=== PATIENT | female | born 1935 | race Caucasian/White ===

== ENCOUNTER 2017-01-22 16:59 | Emergency (ER) | payer MEDICARE, OTHER ==
[~2017-01-22] VITALS: Ht 152.4 cm; Wt 67.1 kg
[~2017-01-22 16:59] MED LIST: ASPIRIN EC81 MG PO; CEPHALEXIN500 MG PO; KEFLEX250 MG PO; NORCO 5-325 TA1 EACH PO; OXYBUTYNIN CHLOR5 MG PO; PAXIL20 MG PO; PRILOSEC20 MG PO; TOPROL XL50 MG PO; ZANTAC150 MG PO; ZOFRAN ODT4 MG SL; ZOFRAN ODT8 MG SL
== END 2017-01-22 19:12 | disposition home or self-care (01) ==
LOC: ED 16:59
PROC: 0T9B70Z Drainage of Bladder with Drainage Device, Via Natural or Artificial Opening (ICD-10-PCS; principal; 2017-01-22)
DX: R11.0 Nausea (principal); R34 Anuria and oliguria; I10 Essential (primary) hypertension; Z87.440 Personal history of urinary (tract) infections; Z90.49 Acquired absence of other specified parts of digestive tract; Z90.710 Acquired absence of both cervix and uterus; Z88.0 Allergy status to penicillin; Z88.2 Allergy status to sulfonamides; Z88.5 Allergy status to narcotic agent; Z79.899 Other long term (current) drug therapy; Z79.82 Long term (current) use of aspirin
CPT/HCPCS: 51701; 81001; 96361; 96374; 96375; 99284; J2405; J2765; J7030

== ENCOUNTER 2017-04-12 17:47 | Emergency (ER) | payer MEDICARE, OTHER ==
[~2017-04-12] VITALS: Ht 152.4 cm; Wt 67.1 kg
[2017-04-12] MEDS ORDERED: LEVAQUIN500 MG PO (21:56)
[2017-04-12] MEDS ORDERED: FLAGYL500 MG PO (21:56)
== END 2017-04-12 22:47 | disposition home or self-care (01) ==
LOC: ED 17:47
DX: N39.0 Urinary tract infection, site not specified (principal); I10 Essential (primary) hypertension; Z90.49 Acquired absence of other specified parts of digestive tract; Z90.89 Acquired absence of other organs; Z90.710 Acquired absence of both cervix and uterus; Z98.890 Other specified postprocedural states; Z88.2 Allergy status to sulfonamides; Z88.0 Allergy status to penicillin; Z88.8 Allergy status to other drugs, medicaments and biological substances; Z79.82 Long term (current) use of aspirin; Z79.899 Other long term (current) drug therapy
CPT/HCPCS: 80053; 81001; 83690; 85025; 87077; 87088; 87186; 96374; 96375; 99283; J1170; J2405; J7030

== ENCOUNTER 2017-09-18 16:09 | Emergency (ER) | payer MEDICARE, OTHER ==
[~2017-09-18] VITALS: Ht 152.4 cm; Wt 61.2 kg
--- OUTSIDE RECORDS SUMMARY | ~2017-09-18 | XMS | Clinical Summary ---
Demographics + + + | Address | [address] | | | [place] [address] | + + + | Home Phone | | + + + | Preferred Language | Unknown | + + + | Marital Status | Single | + + + | Tenriism Affiliation | Unknown | + + + | Race | Unknown | + + + | Ethnic Group | Unknown | + + + Author + + + | Author | [facility] | | | and Maximus | + + + | Organization | [facility] | | | [...] Team Providers + +------+ + | Care Hardware Engineer Name | Role | Phone | + +------+ + | Mandy Yanez PA-C | PP | | + +------+ + Allergies + + + + + + | Active Allergy | Reactions | Severity | Noted | Comments | | | | | Date | | + + + + + + | Diphenhydramine | Anxiety | Low | 02/13/20 | | | | | | 15 | | + + + + + + | Hydromorphone | Nausea And Vomiting | | 04/13/20 | | | | | | 17 | | + + + + + + | Levofloxacin | Hives | Medium | 02/13/20 | | | | | | 15 | | + + + + + + | Metoclopramide | Nausea And Vomiting | Low | 02/13/20 | | | | | | 15 | | + + + + + + | Morphine | Nausea And Vomiting | Low | 02/13/20 | | | | | | 15 | | + + + + + + | Nitrofurantoin | Other (See Comments) | Low | 02/13/20 | Unknown reaction | | | | | 15 | | + + + + + + | Promethazine | Nausea And Vomiting | Low | 02/13/20 | | | | | | 15 | | + + + + + + | Pseudoephedrine | Anxiety | Low | 02/13/20 | | | | | | 15 | | + + + + + + | Sulfamethoxazole-Tri | Hives | Medium | 02/13/20 | | | methoprim | | | 15 | | + + + + + + Current Medications + + +---------+---------+------+------+-------+ | Prescription | Sig. | Disp. | Refills | Star | End | Statu | | | | | | t | Date | s | | | | | | Date | | | + + +---------+---------+------+------+-------+ | PARoxetine (PAXIL) | Take 20 mg by mouth | | | | | Activ | | 20 mg tablet | every morning. | | | | | e | + + +---------+---------+------+------+-------+ | metoprolol | Take 50 mg by mouth | | | | | Activ | | succinate | Daily. | | | | | e | | (TOPROL-XL) 50 mg 24 | | | | | | | | hr tablet | | | | | | | + + +---------+---------+------+------+-------+ | ondansetron | Take 4 mg by mouth | | | | | Activ | | (ZOFRAN ODT) 4 mg | every 8 hours as | | | | | e | | disintegrating | needed for Nausea. | | | | | | | tablet | | | | | | | + + +---------+---------+------+------+-------+ | oxybutynin | Take 1 tablet by | 90 | 2 | 11/1 | | Activ | | (DITROPAN) 5 mg | mouth 2 times daily. | tablet | | 1/20 | | e | | tablet | | | | 17 | | | + + +---------+---------+------+------+-------+ | traZODone | Take 0.5 tablets by | 60 | 2 | 11/1 | | Activ | | (DESYREL) 50 mg | mouth nightly. | tablet | | 1/20 | | e | | tablet | | | | 17 | | | + + +---------+---------+------+------+-------+ | OMEPRAZOLE PO | Take by mouth. | | | | | Activ | | | | | | | | e | + + +---------+---------+------+------+-------+ | oxybutynin | Take 5 mg by mouth 2 | | | | 03/2 | Disco | | (DITROPAN) 5 mg | times daily. | | | | 0/20 | ntinu | | tablet | | | | | 18 | ed | + + +---------+---------+------+------+-------+ | metoprolol | Take 1 tablet by | 30 | 2 | 11/1 | 03/2 | Disco | | succinate | mouth Daily. | tablet | | 2/20 | 0/20 | ntinu | | (TOPROL-XL) 50 mg 24 | | | | 17 | 18 | ed | | hr tablet | | | | | | | + + +---------+---------+------+------+-------+ | PARoxetine (PAXIL) | Take 1 tablet by | 30 | 2 | 11/ | 03/2 | Disco | | 20 mg tablet | mouth every morning. | tablet | | 2/20 | 0/20 | ntinu | | | | | | 17 | 18 | ed | + + +---------+---------+------+------+-------+ | docusate sodium | Take 100 mg by mouth | 30 | 2 | 11/1 | 03/2 | Disco | | (COLACE) 100 MG | Twice daily as | capsule | | 1/20 | 0/20 | ntinu | | capsule | needed. | | | 17 | 18 | ed | + + +---------+---------+------+------+-------+ | cephalexin | Take 1 capsule by | 15 | 0 | 03/2 | 03/2 | Expir | | (KEFLEX) 500 mg | mouth 3 times daily | capsule | | 0/20 | 5/20 | ed | | capsule | for 5 days. | | | 18 | 18 | | + + +---------+---------+------+------+-------+ Active Problems + + + | Problem | Noted Date | + + + | Acute cystitis without hematuria | 04/14/2017 | + + + | Leucocytosis | 04/14/2017 | + + + | CKD (chronic kidney disease), stage III | 04/14/2017 | + + + | Dehydration with hyponatremia | 04/14/2017 | + + + | Syncope and collapse | 03/30/2016 | + + + | Declining functional status | 08/27/2015 | + + + + + | Overview: Patient and daughter endorse patient is not very | | active; does not do own shopping. Short of breath easily, but no | | complaint of chest discomfort. | + + + + + | Chronic UTI | 08/26/2015 | + + + | Blood in stool | 05/20/2015 | + + + | Abdominal pain, generalized | 05/20/2015 | + + + | Nausea | 05/20/2015 | + + + | Constipation | 05/20/2015 | + + + | Vitamin D deficiency | | + + + | UTI (urinary tract infection) | | + + + | Sensorineural hearing loss | | + + + | Pericardial effusion | | + + + | Mixed hyperlipidemia | | + + + | Incontinence | | + + + | Acid reflux disease | | + + + | Asthma | | + + + | Atrophic vaginitis | | + + + | Benign essential hypertension | | + + + | Chronic cough | | + + + | Chronic neck pain | | + + + | Depressive disorder | | + + + | Fatigue | | + + + | GERD (gastroesophageal reflux disease) | | + + + | Hearing loss | | + + + | Hyperlipidemia | | + + + | Arthritis | | + + + Encounters +--------+ + + + + | Date | Type | Specialty | Care Team | Description | +--------+ + + + + | 08/31/ | Emergency | | Forest Olson, | Urinary tract | | 2017 | | | MD | infection without | | | | | | hematuria, site | | | | | | unspecified (Primary | | | | | | Dx) | +--------+ + + + + | 06/22/ | Ancillary | | Provider, | | | 2017 | Orders | | MD Ry | | +--------+ + + + + from Last 3 Months Family History + + +------+ + | Medical History | Relation | Name | Comments | + + +------+ + | Other (see comment) | Father | | hypothermia | + + +------+ + | No Known Problems | Mother | | | + + +------+ + + +------+ + + | Relation | Name | Status | Comments | + +------+ + + | Father | | | | + +------+ + + | Mother | | | | + +------+ + + Social History + +-------+ +--------+------+ [...] + + + + | Weight | 61.2 kg (135 lb) | 05/30/20171246 PST | + + + + | Height | 152.4 cm (5') | 05/30/20171246 PST | + + + + | Body Mass Index | 26.37 | 05/30/20171246 PST | + + + + Plan of Treatment + + + + + | Health Maintenance | Due Date | Last Done | Comments | + + + + + | Vaccine: | | | | | Dtap/Tdap/Td (1 - | 4 | | | | Tdap) | | | | + + + + + | Vaccine: Zoster (#1) | | | | | | 5 | | | + + + + + | Vaccine: | | | | | Pneumococcal 65+ | 0 | | | | Low/Medium Risk (1 | | | | | of 2 - PCV13) | | | | + + + + + | Vaccine: Influenza | | | | | (Season Ended) | 8 | | | + + + + + Results Urinalysis with Microscopic with Culture if Indicated [...] | + + + + | Specific [place] | 1.018 | 1.001 - 1.030 | [...] + | Urine - Urine, | [facility] [address] | | Straight Cath | [place] [address] | + + + Culture, Urine (08/31/20172022) + + + + | Component | Value | Ref Range | + + + + | Culture | >100,000 CFU/ml Escherichia coli | | + + + + + + + | Specimen | Performing Laboratory | + + + | Urine - Urine, | [facility] Duggan | | Straight Cath | [place] [address] | + + + + + +--------+ [...] | Sensitive | + + +--------+ + ECG 12 lead (08/31/20171930) + + [...] STEPHIE LYNN MD | | | | ([id number]) on 09/01/2017 6:55:55 AM | | | |Confirmed by STEPHIE LYNN MD ([id number]) on 09/01/2017 6:55:55 AM | | | [...] + + + | Blood | [facility] [address] | | | [place] [address] | + + + Extra Green Top Tube (08/31/20171909) + +-------+ + | Component | Value | Ref Range | + +-------+ + | Extra Green Top Tube | Done | | + +-------+ + + + + | Specimen | Performing Laboratory | + + + | Blood | [facility] [address] | | | [place] [address] | + + + Extra Gold Top Tube (08/31/20171909) + +-------+ + | Component | Value | Ref Range | + +-------+ + | EGDT | Done | | + +-------+ + + + + | Specimen | Performing Laboratory | + + + | Blood | [facility] [address] | | | [place] [address] | + + + Extra Blue Top Tube (08/31/20171909) + +-------+ + | Component | Value | Ref Range | + +-------+ + | Extra Blue Top Tube | Done | | + +-------+ + + + + | Specimen | Performing Laboratory | + + + | Blood | [facility] [address] | | | [place] [address] | + + + CBC no Differential [...] | + + + | Blood | [facility] [address] | | | [place] [address] | + + + Lipase (08/31/20171909) + +-------+ + | Component | Value | Ref Range | + +-------+ + | LIPASE | 14 | 0 - 60 U/L | + +-------+ + + + + | Specimen | Performing Laboratory | + + + | Blood | [facility] [address] | | | [place] [address] | + + + Comprehensive Metabolic Panel [...] GLOMERULAR FILTRATION | >=60 mL/min/1.73m2 | | [place]GY[place] | RATE,ESTIMATED mL/min/1.99n7Aahv than | | | | 60 Chronic [...] g/dL | + + + + | BILIRUBIN TOTAL | 0.8 | 0.1 - 1.5 mg/dL [...] + + + | Blood | [facility] [address] | | | [place] [address] | + + + from Last 3 Months Insurance + +--------+ +--------+ +---------+ | Payer | Benefi | Subscriber | Type | Phone | Address | | | t Plan | ID | | | | | | / | | | | | | | Group | | | | | + +--------+ +--------+ +---------+ | MEDICARE | MEDICA | xxxxxxxxxx | Medica | [phone] | | | RE | | re | [phone] | | | | PART A | | | | | | | AND B | | | | | + +--------+ +--------+ +---------+ | [facility] | IHS | xxxxxxxxx | Indemn | | | | SERVICE | YELLOW | | ity | | | | | HAWK | | | | | + +--------+ +--------+ +---------+ + +--------+ +--------+ + + | Guarantor Name | Accoun | Relation to | Date | Phone | Billing Address | | | t Type | Patient | of | | | | | | | | | | + +--------+ +--------+ + + | TRACY FUENTES | Person | Self | [birth year] | Home: | [address] | | | al/Fam | | 1936 | [phone] | [place] [address] | | | kathryn | | | [phone] | | + +--------+ +--------+ + +"
--- OUTSIDE RECORDS SUMMARY | ~2017-09-18 | XMS | Clinical Summary ---
Demographics + + + | Address | [address] | | | [place] [address] | + + + | Home Phone | | + + + | Preferred Language | Unknown | + + + | Marital Status | Single | + + + | Presybeterian Affiliation | Unknown | + + + | Race | Unknown | + + + | Ethnic Group | Unknown | + + + Author + + + | Author | [facility] | | | and Maximus | + + + | Organization | [facility] | | | [...] Team Providers + +------+ + | Care Pricing Manager Name | Role | Phone | + [...] | + + + + | Specific [place] | 1.018 | 1.001 - 1.030 | [...] + | Urine - Urine, | [facility] [address]gan | | Straight Cath | [place] [address] | + + + Culture, Urine (08/31/20172022) + + + + | Component | Value | Ref Range | + + + + | Culture | >100,000 CFU/ml Escherichia coli | | + + + + + + + | Specimen | Performing Laboratory | + + + | Urine - Urine, | [facility] [address] | | Straight Cath | [place] [address] | + + + + + +--------+ [...] STEPHIE LYNN MD | | | | ([id number]) on 09/01/2017 6:55:55 AM | | | |Confirmed by STEPHIE LYNN MD ([id number]) on 09/01/2017 6:55:55 AM | | | [...] + + + | Blood | [facility] [address] | | | [place] [address] | + + + Extra Green Top Tube (08/31/20171909) + +-------+ + | Component | Value | Ref Range | + +-------+ + | Extra Green Top Tube | Done | | + +-------+ + + + + | Specimen | Performing Laboratory | + + + | Blood | [facility] [address] | | | [place] [address] | + + + Extra Gold Top Tube (08/31/20171909) + +-------+ + | Component | Value | Ref Range | + +-------+ + | EGDT | Done | | + +-------+ + + + + | Specimen | Performing Laboratory | + + + | Blood | [facility] [address] | | | [place] [address] | + + + Extra Blue Top Tube (08/31/20171909) + +-------+ + | Component | Value | Ref Range | + +-------+ + | Extra Blue Top Tube | Done | | + +-------+ + + + + | Specimen | Performing Laboratory | + + + | Blood | [facility] [address]gan | | | [place] [address] | + + + CBC no Differential [...] | + + + | Blood | [facility] [address] | | | [place] [address] | + + + Lipase (08/31/20171909) + +-------+ + | Component | Value | Ref Range | + +-------+ + | LIPASE | 14 | 0 - 60 U/L | + +-------+ + + + + | Specimen | Performing Laboratory | + + + | Blood | [facility] [address] | | | [place] [address] | + + + Comprehensive Metabolic Panel [...] GLOMERULAR FILTRATION | >=60 mL/min/1.73m2 | | [place] | RATE,ESTIMATED mL/min/1.88w2Sdre than | | | | 60 Chronic [...] + + + | Blood | [facility] [address] | | | [place] [address] | + + + from Last 3 [...] | | + +--------+ +--------+ +---------+ | [facility] | IHS | xxxxxxxxx | Indemn [...] | Self | [birth year] | Home: | [address] | | | al/Fam | | 1936 | [phone] | [place] [address] | | | kathryn | | | [phone] | | + +--------+ +--------+ + +"
--- OUTSIDE RECORDS SUMMARY | ~2017-09-18 | XMS | Encounter Summary ---
Demographics + + + | Address | [address] | | | [place] [address] | + + + | Home Phone | | + + + | Preferred Language | Unknown | + + + | Marital Status | Single | + + + | Muslim Affiliation | Unknown | + + + | Race | Unknown | + + + | Ethnic Group | Unknown | + + + Author + + + | Author | [facility] | | | and Maximus | + + + | Organization | [facility] | | | [...] Team Providers + +------+ + | Care Miniature Set Constructor Name | Role | Phone | + [...] + + | 08/31/ | Emergency | [facility] | Forest Olson, | Urinary tract | | 2018 | | [facility] | [place] [address] | infection without | | | | [place] [address] | [place] | hematuria, site | | | | [place] | [address] | unspecified (Primary | | | | [address] | | Dx) | | | | [phone] | | | +--------+ + + + [...] sent through Care Everywhere.Bladder Infection, Female (Adult) (Sinhala)in this encounter Medications at Time of Discharge [...] as of this encounter Plan of Treatment Not on fileas of this encounter Results Culture, Urine (08/31/20172022) + + + + | Component | Value | Ref Range | + + + + | Culture | >100,000 CFU/ml Escherichia coli | | + + + + + + + | Specimen | Performing Laboratory | + + + | Urine - Urine, | [facility] [address]gan | | Straight Cath | [place] [address] | + + + + + +--------+ [...] | + + + + | Specific [place] | 1.018 | 1.001 - 1.030 | [...] + + | Urine - Urine, | [facility] [address] | | Mica Cath | [place] [address] | + + + ECG 12 lead [...] STEPHIE LYNN MD | | | | ([id number]) on 09/01/2017 6:55:55 AM | | | |Confirmed by STEPHIE LNYN MD ([id number]) on 09/01/2017 6:55:55 AM | | | | | | + + +------ -----+ + + + | Specimen | Performing Laboratory | + + + | | [facility] | + + + CT Abdomen Pelvis wo Contrast (08/31/2017 191) + + | Narrative | + + [...] | + + Extra Lavender Top Tube (08/31/2017 1910) + +-------+ + | Component | Value | Ref Range | + +-------+ + | Extra Lavender Top | Done | | | Tube | | | + +-------+ + + + + | Specimen | Performing Laboratory | + + + | Blood | [facility] [address] | | | [place] [address] | + + + Extra Green Top Tube (08/31/20171909) + +-------+ + | Component | Value | Ref Range | + +-------+ + | Extra Green Top Tube | Done | | + +-------+ + + + + | Specimen | Performing Laboratory | + + + | Blood | [facility] [address] | | | [place] [address] | + + + Extra Gold Top Tube (08/31/20171909) + +-------+ + | Component | Value | Ref Range | + +-------+ + | EGDT | Done | | + +-------+ + + + + | Specimen | Performing Laboratory | + + + | Blood | [facility] [address] | | | [place] [address] | + + + Extra Blue Top Tube (08/31/20171909) + +-------+ + | Component | Value | Ref Range | + +-------+ + | Extra Blue Top Tube | Done | | + +-------+ + + + + | Specimen | Performing Laboratory | + + + | Blood | [facility] [address] | | | [place] [address] | + + + Lipase (08/31/20171909) + +-------+ + | Component | Value | Ref Range | + +-------+ + | LIPASE | 14 | 0 - 60 U/L | + +-------+ + + + + | Specimen | Performing Laboratory | + + + | Blood | [facility] [address] | | | [place] [address] | + + + Comprehensive Metabolic Panel [...] GLOMERULAR FILTRATION | >=60 mL/min/1.73m2 | | SPANISH | RATE,ESTIMATED mL/min/1.64m8Tlfu than | | | | 60 Chronic [...] | + + + | Blood | [facility] [address] | | | [place] [address] | + + + CBC no Differential [...] | + + + | Blood | [facility] [address] | | | [place] [address] | + + + in this encounter [...]
--- OUTSIDE RECORDS SUMMARY | ~2017-09-18 | XMS | Clinical Summary ---
Demographics + + + | Address | [address] | | | [place] [address] | + + + | Home Phone | | + + + | Preferred Language | Unknown | + + + | Marital Status | Unknown | + + + | Hinduism Affiliation | Unknown | + + + | Race | Unknown | + + + | Ethnic Group | Unknown | + + + Author + + + | Author | [facility] | + + + | Organization | [facility] | + + + | Address | Unknown | + + + | Phone | Unavailable | + + + Support + + +---------+ + | Name | Relationship | Address | Phone | + + +---------+ + | oDretha Fuentes | ECON | Unknown | | + + +---------+ + Care Team Providers + +------+ + | Care Supervisor Coil Winding Name | Role | Phone | + [...] | xxxxxxxxxx | | | [address] | | | RE | | | | [place] [address] | | | IP-OP | | | | | + +--------+ +------+-------+ + | /[facility] | YELLOW | xxxxxxxxx | | [...] | Self | [birth year] | Home: | [address] | | | al/Fam | | 1936 | [phone] | [place] [address] | | | kathryn | | | [phone] | | + +--------+ +--------+ + +"
--- OUTSIDE RECORDS SUMMARY | ~2017-09-18 | XMS | Encounter Summary ---
Demographics + + + | Address | [address] | | | [place] [address] | + + + | Home Phone | | + + + | Preferred Language | Unknown | + + + | Marital Status | Single | + + + | Mu-Ism Affiliation | Unknown | + + + | Race | Unknown | + + + | Ethnic Group | Unknown | + + + Author + + + | Author | [facility] | | | and Maximus | + + + | Organization | [facility] | | | and [...] Team Providers + +------+ + | Care Overedge Sewer Name | Role | Phone | + [...] + | 08/31/ | Emergency | [facility] | Forest Olson, | Urinary tract | | 2018 | | [facility] | [place] [address] | infection without | | | | [place] [address] | [place] | hematuria, site | | | | [place] | [address] | unspecified (Primary | | | | [address] | | Dx) | | | | [phone] | | | +--------+ + + + [...] sent through Care Everywhere.Bladder Infection, Female (Adult) (Bulgarian)in this encounter Medications at Time of Discharge [...] + | Urine - Urine, | [facility] [address]gan | | Straight Cath | [place] [address] | + + + + + +--------+ [...] | + + + + | Specific [place] | 1.018 | 1.001 - 1.030 | [...] + + | Urine - Urine, | [facility] [address] | | Mica Cath | [place] [address] | + + + ECG 12 lead [...] STEPHIE LYNN MD | | | | ([id number]) on 09/01/2017 6:55:55 AM | | | |Confirmed by STEPHIE LYNN MD ([id number]) on 09/01/2017 6:55:55 AM | | | [...] + + + | Blood | [facility] [address] | | | [place] [address] | + + + Extra Green Top Tube (08/31/20171909) + +-------+ + | Component | Value | Ref Range | + +-------+ + | Extra Green Top Tube | Done | | + +-------+ + + + + | Specimen | Performing Laboratory | + + + | Blood | [facility] [address] | | | [place] [address] | + + + Extra Gold Top Tube (08/31/20171909) + +-------+ + | Component | Value | Ref Range | + +-------+ + | EGDT | Done | | + +-------+ + + + + | Specimen | Performing Laboratory | + + + | Blood | [facility] [address] | | | [place] [address] | + + + Extra Blue Top Tube (08/31/20171909) + +-------+ + | Component | Value | Ref Range | + +-------+ + | Extra Blue Top Tube | Done | | + +-------+ + + + + | Specimen | Performing Laboratory | + + + | Blood | [facility] [address] | | | [place] [address] | + + + Lipase (08/31/20171909) + +-------+ + | Component | Value | Ref Range | + +-------+ + | LIPASE | 14 | 0 - 60 U/L | + +-------+ + + + + | Specimen | Performing Laboratory | + + + | Blood | [facility] [address]ug[facility] | | | [place] [address] | + + + Comprehensive Metabolic Panel [...] GLOMERULAR FILTRATION | >=60 mL/min/1.73m2 | | [place] | RATE,ESTIMATED mL/min/1.73f6Tgwv than | | | | 60 Chronic [...] | + + + | Blood | [facility] [address] | | | [place] [address] | + + + CBC no Differential [...] | + + + | Blood | [facility] [address] Doyle[address]elaide [address] | | | [place] [address] | + + + in this encounter [...]
--- OUTSIDE RECORDS SUMMARY | ~2017-09-18 | XMS | Clinical Summary ---
Demographics + + + | Address | [address] [place] [address] RD | | | [place] [address] | + + + | Home Phone | | + + + | Preferred Language | Unknown | + + + | Marital Status | Single | + + + | Hinduism Affiliation | UNK | + + + [...] Team Providers + +------+ + | Care Edger Hand Name | Role | Phone | + +------+ + PP | Unavailable | + +------+ + Source Comments MYLA is fully live on both [facility] and [facility] InPatient.[facility] Allergies Not on File Current Medications [...]
--- OUTSIDE RECORDS SUMMARY | ~2017-09-18 | XMS | Clinical Summary ---
Demographics + + + | Address | [address] | | | [place] [address] | + + + | Home Phone | | + + + | Preferred Language | Unknown | + + + | Marital Status | Unknown | + + + | Orthodoxy Affiliation | Unknown | + + + | Race | Unknown | + + + | Ethnic Group | Unknown | + + + Author + + + | Author | [facility] | + + + | Organization | [facility] | + + + | Address | Unknown | + + + | Phone | Unavailable | + + + Support + + +---------+ + | Name | Relationship | Address | Phone | + + +---------+ + | Doretha Fuentes | ECON | Unknown | | + + +---------+ + Care Team Providers + +------+ + | Care Radio Communications Mechanician Name | Role | Phone | + [...] | xxxxxxxxxx | | | [address] | | | RE | | | | [place] [address] | | | IP-OP | | | | | + +--------+ +------+-------+ + | /[facility] | YELLOW | xxxxxxxxx | | [...] | Self | [birth year] | Home: | [address] | | | al/Fam | | 1936 | [phone] | [place] [address] | | | [place]athryn | | | [phone] | | + +--------+ +--------+ + +"
--- OUTSIDE RECORDS SUMMARY | ~2017-09-18 | XMS | Clinical Summary ---
Demographics + + + | Address | [id number] [place] [address] RD | | | [place] [address] | + + + | Home Phone | | + + + | Preferred Language | Unknown | + + + | Marital Status | Single | + + + | Church Affiliation | UNK | + + + [...] Team Providers + +------+ + | Care Tool Repairer Bench Name | Role | Phone | + +------+ + PP | Unavailable | + +------+ + Source Comments [facility] is fully live on both [facility] and [facility] Allergies Not on File Current Medications Not [...]
--- OUTSIDE RECORDS SUMMARY | ~2017-09-18 | XMS | Encounter Summary ---
Demographics + + + | Address | [address] | | | [place] [address] | + + + | Home Phone | | + + + | Preferred Language | Unknown | + + + | Marital Status | Single | + + + | Amish Affiliation | Unknown | + + + | Race | Unknown | + + + | Ethnic Group | Unknown | + + + Author + + + | Author | [facility] | | | and Maximus | + + + | Organization | [facility] | | | [...] Team Providers + +------+ + | Care Framing Mill Operator Helper Name | Role | Phone | + +------+ + | Mandy Yanez PA-C | PCP | | + +------+ + Encounter Details +--------+ + + + + | Date | Type | Department | Care Team | Description | +--------+ + + + + | 06/22/ | Ancillary | [facility] | Provider, | | | 2018 | Orders | [facility] | [facility] [address] | | | | | IMAGING | [address] | | | | | [phone] | [place] [address] | | +--------+ + + + + [...] Not on fileas of this encounter Results US Renal Complete (06/16/2017 1010) + + + | Specimen | Performing Laboratory | + + + | | [facility] | + + + + + | Narrative | + + | External films for comparison only - no result from [facility]. | + + in this encounter Visit Diagnoses Not on filein this encounter"
--- OUTSIDE RECORDS SUMMARY | ~2017-09-18 | XMS | Encounter Summary ---
Demographics + + + | Address | [address] | | | [place] [address] | + + + | Home Phone | | + + + | Preferred Language | Unknown | + + + | Marital Status | Single | + + + | Adventist Affiliation | Unknown | + + + | Race | Unknown | + + + | Ethnic Group | Unknown | + + + Author + + + | Author | [facility] | | | and Maximus | + + + | Organization | [facility] | [...] Team Providers + +------+ + | Care Jewel Hole Finish Opener Name | Role | Phone | + [...] [address] [place] | | | | | [phone] | [place] [address] | | +--------+ + + + + [...]
[~2017-09-18 16:09] MED LIST changes: +FLAGYL500 MG PO; +LEVAQUIN500 MG PO
[2017-09-18] MEDS ORDERED: IMODIUM A-D2 M2 PO (16:26)
[2017-09-18] MEDS ORDERED: DICYCLOMINE HCL10 MG PO (16:26)
[2017-09-18] MEDS ORDERED: TRAZODONE HCL100 MG PO (17:53)
[2017-09-18] MEDS ORDERED: K-TAB ER20 MEQ PO (18:07)
== END 2017-09-18 19:26 | disposition home or self-care (01) ==
LOC: ED 16:09
DX: K52.9 Noninfective gastroenteritis and colitis, unspecified (principal); E87.6 Hypokalemia; R53.1 Weakness; I10 Essential (primary) hypertension; Z88.2 Allergy status to sulfonamides; Z88.0 Allergy status to penicillin; Z88.5 Allergy status to narcotic agent; Z88.8 Allergy status to other drugs, medicaments and biological substances; Z88.1 Allergy status to other antibiotic agents; Z79.82 Long term (current) use of aspirin; Z79.899 Other long term (current) drug therapy
CPT/HCPCS: 72170; 80053; 81001; 85025; 99284; J7040

== ENCOUNTER 2017-10-06 20:48 | Emergency (ER) | payer MEDICARE, OTHER ==
[~2017-10-06] VITALS: Ht 152.4 cm; Wt 61.2 kg
--- OUTSIDE RECORDS SUMMARY | ~2017-10-06 | XMS | Clinical Summary ---
Demographics + + + | Address | [address] | | | [place] [address] | + + + | Home Phone | | + + + | Preferred Language | Unknown | + + + | Marital Status | Unknown | + + + | Mormonism Affiliation | Unknown | + + + | Race | Unknown | + + + | Ethnic Group | Unknown | + + + Author + + + | Author | [facility] | + + + | Organization | [facility] | + + + | Address | Unknown | + + + | Phone | Unavailable | + + + Support + + +---------+ + | Name | Relationship | Address | Phone | + + +---------+ + | Doretha Fuentes | ECON | Unknown | | + + +---------+ + Care Team Providers + +------+ + | Care Solutions Developer Name | Role | Phone | + +------+ + | Mandy Yanez PA-C | PP | | + +------+ + Allergies + + + + + + | Active Allergy | Reactions | Severity | Noted | Comments | | | | | Date | | + + + + + + | Diphenhydramine | Other (See Comments) | Medium | 03/24/20 | UNKNOWN | | | | | 17 | | + + + + + + | Levofloxacin | Other (See Comments) | Medium | 03/24/20 | UNKNOWN | | | | | 17 | | + + + + + + | Nitrofurantoin | Other (See Comments) | Medium | 03/24/20 | UNKNOWN | | | | | 17 | | + + + + + + | Morphine | Other (See Comments) | Medium | 03/24/20 | UNKNOWN | | | | | 17 | | + + + + + + | Promethazine | Other (See Comments) | Medium | 03/24/20 | UNKNOWN | | | | | 17 | | + + + + + + | Pseudoephedrine | Other (See Comments) | Medium | 03/24/20 | UNKNOWN | | | | | 17 | | + + + + + + | Metoclopramide | Other (See Comments) | Medium | 03/24/20 | UNKNOWN | | | | | 17 | | + + + + + + | Sulfamethoxazole-Tri | Other (See Comments) | Medium | 03/24/20 | UNKNOWN | | methoprim | | | 17 | | + + + + + + Current Medications + + +-------+---------+------+------+-------+ | Prescription | Sig. | Disp. | Refills | Star | End | Statu | | | | | | t | Date | s | | | | | | Date | | | + + +-------+---------+------+------+-------+ | benzonatate | Take 200 mg by mouth | | | | | Activ | | (TESSALON) 200 MG | 3 (three) times | | | | | e | | capsule | daily as needed for | | | | | | | | Cough. | | | | | | + + +-------+---------+------+------+-------+ | cephALEXin | Take 250 mg by mouth | | | | | Activ | | (KEFLEX) 250 MG | daily. | | | | | e | | capsule | | | | | | | + + +-------+---------+------+------+-------+ | diclofenac | Place 1 patch onto | | | | | Activ | | (FLECTOR) 1.3 % | the skin 2 (two) | | | | | e | | patch | times daily. | | | | | | + + +-------+---------+------+------+-------+ | fluticasone | 2 sprays by Each | | | | | Activ | | (FLONASE) 50 MCG/ACT | Nare route daily. | | | | | e | | nasal | | | | | | | + + +-------+---------+------+------+-------+ | loratadine | Take 10 mg by mouth | | | | | Activ | | (CLARITIN) 10 MG | daily as needed for | | | | | e | | tablet | Allergies. | | | | | | + + +-------+---------+------+------+-------+ | metoprolol | Take 50 mg by mouth | | | | | Activ | | (TOPROL-XL) 50 MG 24 | daily. | | | | | e | | hr | | | | | | | | tabletIndications: | | | | | | | | Hypertension | | | | | | | + + +-------+---------+------+------+-------+ | Multiple | Take 1 tablet by | | | | | Activ | | Vitamins-Minerals | mouth daily. | | | | | e | | (MULTIVITAMIN WITH | | | | | | | | MINERALS) tablet | | | | | | | + + +-------+---------+------+------+-------+ | Misc. Throat | Use as directed in | | | | | Activ | | Products (OASIS | the mouth or throat. | | | | | e | | MOISTURIZING | | | | | | | | MOUTHWASH MT) | | | | | | | + + +-------+---------+------+------+-------+ | omeprazole | Take 20 mg by mouth | | | | | Activ | | (PRILOSEC) 20 MG | 2 (two) times daily. | | | | | e | | capsule | | | | | | | + + +-------+---------+------+------+-------+ | oxybutynin | Take 5 mg by mouth 2 | | | | | Activ | | (DITROPAN) 5 MG | (two) times daily. | | | | | e | | tablet | bladder | | | | | | + + +-------+---------+------+------+-------+ | PARoxetine (PAXIL) | Take 20 mg by mouth | | | | | Activ | | 20 MG tablet | every morning. | | | | | e | | | depression | | | | | | + + +-------+---------+------+------+-------+ | traZODone | Take 50 mg by mouth | | | | | Activ | | (DESYREL) 50 MG | nightly. sleep | | | | | e | | tablet | | | | | | | + + +-------+---------+------+------+-------+ | aspirin 81 MG | Take 81 mg by mouth | | | | | Activ | | chewable tablet | daily with | | | | | e | | | breakfast. | | | | | | + + +-------+---------+------+------+-------+ Active Problems Not on file Social History + +-------+ +--------+------+ | Tobacco Use | Types | Packs/Day | Years | Date | | | | | Used | | + +-------+ +--------+------+ | Never Smoker | | | | | + +-------+ +--------+------+ + +---+---+---+ | Smokeless Tobacco: | | | | | Never Used | | | | + +---+---+---+ + + +---------+ + | Alcohol Use | Drinks/We | oz/Week | Comments | | | ek | | | + + +---------+ + | No | | | | + + +---------+ + + + + | Sex Assigned at | Date Recorded | | | | + + + | Not on file | | + + + Last Filed Vital Signs + + + + | Vital Sign | Reading | Time Taken | + + + + | Blood Pressure | 132/86 | 03/24/2017 2:15 PM PDT | + + + + | Pulse | 75 | 03/24/2017 2:15 PM PDT | + + + + | Temperature | 36.1 C (96.9 F) | 03/24/2017 2:15 PM PDT | + + + + | Respiratory Rate | - | - | + + + + | Oxygen Saturation | 96% | 03/24/2017 2:15 PM PDT | + + + + | Inhaled Oxygen | - | - | | Concentration | | | + + + + | Weight | 68 kg (150 lb) | 03/24/2017 2:15 PM PDT | + + + + | Height | - | - | + + + + | Body Mass Index | - | - | + + + + Plan of Treatment Not on file Results Not on filefrom Last 3 Months Insurance + +--------+ +------+-------+ + | Payer | Benefi | Subscriber | Type | Phone | Address | | | t Plan | ID | | | | | | / | | | | | | | Group | | | | | + +--------+ +------+-------+ + | MEDICARE | MEDICA | xxxxxxxxxx | | | [address] | | | RE | | | | [place] [phone] | | | IP-OP | | | | | + +--------+ +------+-------+ + | /[employer] [employer] [facility] | YELLOW | xxxxxxxxx | | | | | PLANS | [place] | | | | | + +--------+ +------+-------+ + + +--------+ +--------+ + + | Guarantor Name | Accoun | Relation to | Date | Phone | Billing Address | | | t Type | Patient | of | | | | | | | | | | + +--------+ +--------+ + + | TRACY FUENTES | Person | Self [birth year] | Home: | [address] | | | al/Fam | | [phone] | [phone] | [place] [address] | | | [place] | | | [phone] | | + +--------+ +--------+ + +"
--- OUTSIDE RECORDS SUMMARY | ~2017-10-06 | XMS | Clinical Summary ---
Demographics + + + | Address | [address] | | | [place] [address] | + + + | Home Phone | | + + + | Preferred Language | Unknown | + + + | Marital Status | Unknown | + + + | Sikhism Affiliation | Unknown | + + + | Race | Unknown | + + + | Ethnic Group | Unknown | + + + Author + + + | Author | [facility] | + + + | Organization | [facility] | + + + | Address | Unknown | + + + | Phone | Unavailable | + + + Support + + +---------+ + | Name | Relationship | Address | Phone | + + +---------+ + | Doretha Fuentes | ECON | Unknown | | + + +---------+ + Care Team Providers + +------+ + | Care Supervisor Correspondence Section Name | Role | Phone | + [...] | xxxxxxxxxx | | | [address] | | | RE | | | | [place] [phone] | | | IP-OP | | | | | + +--------+ +------+-------+ + | /[facility] | YELLOW | xxxxxxxxx | | [...] | Self [birth year] | Home: | [address] | | | al/Fam | | [phone] | [phone] | [place] [address] | | | [place]ryn | | | [phone] | | + +--------+ +--------+ + +"
--- OUTSIDE RECORDS SUMMARY | ~2017-10-06 | XMS | Encounter Summary ---
Demographics + + + | Address | [address] | | | [place] [address] | + + + | Home Phone | | + + + | Preferred Language | Unknown | + + + | Marital Status | Single | + + + | Mosque Affiliation | Unknown | + + + | Race | Unknown | + + + | Ethnic Group | Unknown | + + + Author + + + | Author | [facility] | | | and [place] | + + + | Organization | [facility] | | | and [place] | + + + | Address | Unknown | + + + | Phone | Unavailable | + + + Support + + +---------+ + | Name | Relationship | Address | Phone | + + +---------+ + | Doretha Fuentes | ECON | Unknown | | + + +---------+ + Care Team Providers + +------+ + | Care Custodian Blood [facility] Name | Role | Phone | + +------+ + | Mandy Yanez PA-C | PCP | | + +------+ + Reason for Visit + + + | Reason | Comments | + + + | Diarrhea (Adult) | | + + + | Abdominal Pain | | + + + Auth/Cert +--------+--------+ + + + + | Status | Reason | Specialty | Diagnoses / | Referred By | Referred To | | | | | Procedures | Contact | Contact | +--------+--------+ + + + + | | | | | | | +--------+--------+ + + + + Encounter Details +--------+ + + + + | Date | Type | Department | Care Team | Description | +--------+ + + + + | 08/31/ | Emergency | [facility] | [place], | Urinary tract | | 2018 | | [facility] | [place] [address] | infection without | | | | [place] [address] | [place] | hematuria, site | | | | [place] | [address] | unspecified (Primary | | | | [address] | | Dx) | | | | [phone] | | | +--------+ + + + + Social History + +-------+ +--------+------+ | Tobacco [...] + + +---------+ + | No | 0 | 0.0 | | | | Standard | | | | | drinks or | | | | | | | | | | equivalen | | | | | t | | | + + +---------+ + + + + | Sex Assigned at | Date Recorded | | | | + + + | Not on file | | + + + as of this encounter Last Filed Vital Signs + + + + | Vital Sign | Reading | Time Taken | + + + + | Blood Pressure | 177/79 | 08/31/20172303 PDT | + + + + | Pulse | 100 | 08/31/20172303 PDT | + + + + | Temperature | 36.6 C (97.9 F) | 08/31/20171829 PDT | + + + + | Respiratory Rate | 20 | 08/31/20172303 PDT | + + + + | Oxygen Saturation | 97% | 08/31/20172303 PDT | + + + + | Inhaled Oxygen | - | - | | Concentration | | | + + + + | Weight | - | - | + + + + | Height | - | - | + + + + | Body Mass Index | - | - | + + + + in this encounter Discharge Instructions The following attachments cannot be sent through Care Everywhere.Bladder Infection, Female (Adult) (Slovenian)in this encounter Medications at Time of Discharge + + +---------+---------+ + + | Medication | Sig. | Disp. | Refills | Start | End Date | | | | | | Date | | + + +---------+---------+ + + | metoprolol | Take 50 mg by mouth | | | | | | succinate | Daily. | | | | | | (TOPROL-XL) 50 mg 24 | | | | | | | hr tablet | | | | | | + + +---------+---------+ + + | OMEPRAZOLE PO | Take by mouth. | | | | | + + +---------+---------+ + + | ondansetron | Take 4 mg by mouth | | | | | | (ZOFRAN ODT) 4 mg | every 8 hours as | | | | | | disintegrating | needed for Nausea. | | | | | | tablet | | | | | | + + +---------+---------+ + + | oxybutynin | Take 1 tablet by | 90 | 2 | 04/24/20 | | | (DITROPAN) 5 mg | mouth 2 times daily. | tablet | | 17 | | | tablet | | | | | | + + +---------+---------+ + + | PARoxetine (PAXIL) | Take 20 mg by mouth | | | | | | 20 mg tablet | every morning. | | | | | + + +---------+---------+ + + | traZODone | Take 0.5 tablets by | 60 | 2 | 04/24/20 | | | (DESYREL) 50 mg | mouth nightly. | tablet | | 17 | | | tablet | | | | | | + + +---------+---------+ + + | cephalexin | Take 1 capsule by | 15 | 0 | 09/01/19 | | | (KEFLEX) 500 mg | mouth 3 times daily | capsule | | 18 | 8 | | capsule | for 5 days. | | | | | + + +---------+---------+ + + as of this encounter Plan of Treatment +--------+---------+ + + + | Date | Type | Specialty | Care Team | Description | +--------+---------+ + + + | 10/21/ | Office | Gastroenterology | [facility] | | 2017 | Visit | | YENI Bruno [address] | | | | | | [address] | | | | | | [place] | | | | | | [address] | | | | | | | | +--------+---------+ + + + as of this encounter Results Culture, Urine (08/31/20172022) + + + + | Component | Value | Ref Range | + + + + | Culture | >100,000 CFU/ml Escherichia coli | | + + + + + + + | Specimen | Performing Laboratory | + + + | Urine - Urine, | [facility] [address] | | [address] | [place] [address] | + + + + + +--------+ + | Organism | Antibiotic | Method | Susceptibility | + + +--------+ + | Escherichia coli | Ampicillin | | >=32 ug/mL: | | | | | Resistant | + + +--------+ + | Escherichia coli | Ampicillin + | | >=32 ug/mL: | | | Sulbactam | | Resistant | + + +--------+ + | Escherichia coli | Cefazolin | | <=4 ug/mL: | | | | | Sensitive | + + +--------+ + | Escherichia coli | Cefoxitin | | <=4 ug/mL: | | | | | Sensitive | + + +--------+ + | Escherichia coli | Ceftazidime | | <=1 ug/mL: | | | | | Sensitive | + + +--------+ + | Escherichia coli | Ceftriaxone | | <=1 ug/mL: | | | | | Sensitive | + + +--------+ + | Escherichia coli | Ciprofloxacin | | >=4 ug/mL: | | | | | Resistant | + + +--------+ + | Escherichia coli | Ertapenem | | <=0.5 ug/mL: | | | | | Sensitive | + + +--------+ + | Escherichia coli | Gentamicin | | <=1 ug/mL: | | | | | Sensitive | + + +--------+ + | Escherichia coli | Meropenem | | <=0.25 ug/mL: | | | | | Sensitive | + + +--------+ + | Escherichia coli | Nitrofurantoin | | <=16 ug/mL: | | | | | Sensitive | + + +--------+ + | Escherichia coli | Piperacillin + | | 8 ug/mL: Sensitive | | | Tazobactam | | | + + +--------+ + | Escherichia coli | Tobramycin | | <=1 ug/mL: | | | | | Sensitive | + + +--------+ + | Escherichia coli | Trimethoprim + | | <=20 ug/mL: | | | Sulfamethoxazole | | Sensitive | + + +--------+ + Urinalysis with Microscopic with Culture if Indicated (08/31/20172022) + + + + | Component | Value | Ref Range | + + + + | COLOR | Yellow | Light Yellow, | | | | Yellow, Straw | + + + + | CLARITY | Hazy (A) | Clear | + + + + | PH UA | 5.0 | 5.0 - 8.0 | + + + + | Specific [place] | 1.018 | 1.001 - 1.030 | + + + + | PROTEIN UA | Negative | Negative | + + + + | BLOOD UA | Negative | Negative | + + + + | GLUCOSE UA | Negative | Negative | + + + + | KETONES UA | Trace (A) | Negative | + + + + | BILIRUBIN UA | Negative | Negative | + + + + | NITRITE UA | Positive (A) | Negative | + + + + | LEUKOCYTES ESTERASE | Moderate (A) | Negative | | UA | | | + + + + | UROBILINOGEN UA | Negative | 0.2 mg/dL, 1.0 | | | | mg/dL, Negative | + + + + | WBC UA | 25-50 (A) | 0 - 2 /HPF | + + + + | WBC CLUMPS UA | Few (A) | None Seen /HPF | + + + + | RBC UA | 0-2 | 0 - 2 /HPF | + + + + | SQUAMOUS EPITHELIAL | 2-5 (A) | 0 - 2 /LPF | | UA | | | + + + + | BACTERIA UA | 4+ (A) | Negative /HPF | + + + + | MUCUS UA | Present (A) | Negative /LPF | + + + + | BUDDING YEAST UA | Few (A) | Negative | + + + + | HYALINE CASTS UA | 5-10 (A) | 0 - 2 /LPF | + + + + + + + | Specimen | Performing Laboratory | + + + | Urine - Urine, | [facility] [address] | | [address] | [place] [address] | + + + ECG 12 lead (08/31/20171930) + + +------ -----+ | Component | Value | Ref R lydia | + + +------ -----+ | VENTRICULAR RATE EKG | 109 | BPM | + + +------ -----+ | QRS DURATION | 82 | ms | + + +------ -----+ | Q-T INTERVAL | 426 | ms | + + +------ -----+ | Q-T INTERVAL | 573 | ms | | (CORRECTED) | | | + + +------ -----+ | QRS AXIS | 7 | degre es | + + +------ -----+ | T AXIS | 144 | degre es | + + +------ -----+ | INTERPRETATION TEXT | Atrial fibrillation with rapid ventricular | | | | responseLow voltage QRSNonspecific T wave | | | | abnormalityAbnormal ECGWhen compared with | | | | ECG of 15-APR-2017 17:43,Atrial | | | | fibrillation has replaced Sinus rhythmQT | | | | has shortenedConfirmed by STEPHIE LYNN MD | | | | ([id number]) on 09/01/2017 6:55:55 AM | | | |Confirmed by STEPHIE LYNN MD ([id number]) on 09/01/2017 6:55:55 AM | | | | | | + + +------ -----+ + + + | Specimen | Performing Laboratory | + + + | | [facility] | + + + CT Abdomen Pelvis wo Contrast (08/31/20171913) + + | Narrative | + + | TECHNIQUE: Noncontrast axial CT imaging was obtained through the abdomen and | | pelvis with coronal and sagittal reformats. CLINICAL INFORMATION: DIARRHEA (ADULT) | | ABDOMINAL PAIN COMPARISON: CT dated 04/13/2017. FINDINGS: CHEST: Minimal | | basilar scarring/atelectasis. Small right posterior medial calcified pleural | | plaque. Stable moderate pericardial effusion. BONES: No acute osseous | | abnormality. No osteoblastic or osteolytic lesion. ABDOMEN/PELVIS: Abdominal wall: | | Multiple gluteal region injection granulomas. Liver: Normal. Bile ducts: No | | intrahepatic dilatation. Gallbladder: Cholecystectomy changes. Pancreas: Normal. | | Spleen: Normal. Adrenals: Normal. Kidneys: Right punctate calcified stone without | | hydronephrosis. Ureters: Normal Urinary Bladder: No focal or diffuse wall thickening. | | Reproductive organs: Hysterectomy changes. Bowel: The appendix is not | | identified. No focal or segmental bowel wall thickening. No evidence of bowel | | obstruction. Hiatal hernia noted. Peritoneum: No ascites or free air. No | | lymphadenopathy. Retroperitoneum: No lymphadenopathy. Vessels: Normal caliber of the | | abdominal aorta. IMPRESSION - No acute abdominal or pelvic abnormality. | | Punctate right nephrolith without obstructive uropathy. Hiatal hernia. Stable | | moderate pericardial effusion. Dictated and Signed by: Ulysses Caballero MD | | Electronically signed: 08/31/2017 7:28 PM | + + + + | Procedure Note | + + | Paul, Rad Results In - 08/31/2017 1931 PDT | | TECHNIQUE: Noncontrast axial CT imaging was obtained through the abdomen and | | pelvis with coronal and sagittal reformats. | | | | CLINICAL INFORMATION: DIARRHEA (ADULT) | | ABDOMINAL PAIN | | | | COMPARISON: CT dated 04/13/2017. | | | | FINDINGS: | | | | CHEST: Minimal basilar scarring/atelectasis. Small right posterior medial | | calcified pleural plaque. Stable moderate pericardial effusion. | | | | BONES: No acute osseous abnormality. No osteoblastic or osteolytic lesion. | | | | ABDOMEN/PELVIS: | | Abdominal wall: Multiple gluteal region injection granulomas. | | | | Liver: Normal. | | Bile ducts: No intrahepatic dilatation. | | Gallbladder: Cholecystectomy changes. | | Pancreas: Normal. | | Spleen: Normal. | | | | Adrenals: Normal. | | Kidneys: Right punctate calcified stone without hydronephrosis. | | Ureters: Normal | | Urinary Bladder: No focal or diffuse wall thickening. | | Reproductive organs: Hysterectomy changes. | | | | Bowel: The appendix is not identified. No focal or segmental bowel wall | | thickening. No evidence of bowel obstruction. Hiatal hernia noted. | | Peritoneum: No ascites or free air. No lymphadenopathy. | | Retroperitoneum: No lymphadenopathy. | | Vessels: Normal caliber of the abdominal aorta. | | | | | | IMPRESSION - | | | | No acute abdominal or pelvic abnormality. | | | | Punctate right nephrolith without obstructive uropathy. | | | | Hiatal hernia. | | | | Stable moderate pericardial effusion. | | | | Dictated and Signed by: Ulysses Caballero MD | | Electronically signed: 08/31/2017 7:28 PM | + + Extra Lavender Top Tube (08/31/20170) + +-------+ + | Component | Value | Ref Range | + +-------+ + | Extra Lavender Top | Done | | | Tube | | | + +-------+ + + + + | Specimen | Performing Laboratory | + + + | Blood | [facility] [address] | | | [place] [address] | + + + Extra Green Top Tube (08/31/20171909) + +-------+ + | Component | Value | Ref Range | + +-------+ + | Extra Green Top Tube | Done | | + +-------+ + + + + | Specimen | Performing Laboratory | + + + | Blood | [facility] [address] | | | [place] [address] | + + + Extra Gold Top Tube (08/31/20171909) + +-------+ + | Component | Value | Ref Range | + +-------+ + | EGDT | Done | | + +-------+ + + + + | Specimen | Performing Laboratory | + + + | Blood | [facility] [address] | | | [place] [address] | + + + Extra Blue Top Tube (08/31/20171909) + +-------+ + | Component | Value | Ref Range | + +-------+ + | Extra Blue Top Tube | Done | | + +-------+ + + + + | Specimen | Performing Laboratory | + + + | Blood | [facility] [address] | | | [place] [address] | + + + Lipase (08/31/20171909) + +-------+ + | Component | Value | Ref Range | + +-------+ + | LIPASE | 14 | 0 - 60 U/L | + +-------+ + + + + | Specimen | Performing Laboratory | + + + | Blood | [facility] [address] | | | [place] [address] | + + + Comprehensive Metabolic Panel (08/31/20171909) + + + + | Component | Value | Ref Range | + + + + | NA | 133 (L) | 136 - 149 mmol/L | + + + + | K | 3.8 | 3.5 - 5.1 mmol/L | + + + + | CL | 97 (L) | 98 - 109 mmol/L | + + + + | CO2 | 26 | 24 - 31 mmol/L | + + + + | ANION GAP | 10 | 3 - 16 mmol/L | + + + + | GLUCOSE | 111 (H) | 70 - 109 mg/dL | + + + + | BUN | 11 | 7 - 18 mg/dL | + + + + | Creatinine, | 1.26 | 0.60 - 1.30 mg/dL | | Serum/Plasma | | | + + + + | eGFR if not | 41 (L)Comment: GLOMERULAR FILTRATION | >=60 mL/min/1.73m2 | | [place] | RATE,ESTIMATED mL/min/1.85e4Kkcr than | | | | 60 Chronic kidney disease,if found over | | | | a 3-month period.Less than 15 Kidney | | | | failureFor Americans,multiply the | | | | calculated GFR by 1.21. | | | | | | | | | | + + + + | CALCIUM | 9.9 | 8.3 - 10.5 mg/dL | + + + + | ALBUMIN | 4.1 | 3.2 - 5.0 g/dL | + + + + | Bilirubin Total | 0.8 | 0.1 - 1.5 mg/dL | + + + + | Total protein | 8.3 (H) | 6.0 - 7.8 g/dL | + + + + | AST | 28 | 10 - 42 U/L | + + + + | ALT | 20 | 6 - 45 U/L | + + + + | ALK PHOS | 49 | 40 - 110 U/L | + + + + | GLOBULIN | 4.2 (H) | 2.1 - 3.8 g/dL | + + + + | Albumin/Globulin | 1.0 | 0.8 - 2.0 | | ratio | | | + + + + | BUN/CREA | 8.7 | | + + + + + + + | Specimen | Performing Laboratory | + + + | Blood | [facility] | | | [place] [address] | + + + CBC no Differential (08/31/20171909) + + + + | Component | Value | Ref Range | + + + + | WBC | 13.4 (H) | 4.0 - 11.0 K/uL | + + + + | RBC | 4.87 | 3.70 - 5.20 M/uL | + + + + | Hgb | 13.4 | 11.5 - 16.0 g/dL | + + + + | Hct | 41.1 | 34.0 - 47.0 % | + + + + | MCV | 84.4 | 83.0 - 101.0 fL | + + + + | MCH | 27.5 (L) | 28.0 - 35.0 pg | + + + + | MCHC | 32.5 | 32.0 - 36.0 g/dL | + + + + | RDW-CV | 14.7 | <15.0 % | + + + + | Platelet Count | 236 | 140 - 440 K/uL | + + + + | MPV | 8.4 | fL | + + + + + + + | Specimen | Performing Laboratory | + + + | Blood | [facility] [address] | | | [place] [address] | + + + in this encounter Visit Diagnoses + + | Diagnosis | + + | Urinary tract infection without hematuria, site unspecified - Primary | + + Administered Medications + +---------+ +------+-------+------+ | Medication Order | MAR | Action | Dose | Rate | Site | | | Action | Date | | | | + +---------+ +------+-------+------+ | cefTRIAXone (ROCEPHIN) 1 g in | New Bag | | 1 g | 100 | | | sodium chloride 0.9% 50 mL IVPB | | 8 22:01 | | mL/hr | | | 1 g, Intravenous, Administer over | | PDT | | | | | 30 Minutes, ONCE, 08/31/17 at | | | | | | | 2150, For 1 dose, Activate | | | | | | | system and mix before use. | | | | | | + +---------+ +------+-------+------+ +---+---+ | | | +---+---+ + +---------+ +--------+-------+---+ | sodium chloride 0.9% (NS) bolus | New Bag | | 1,000 | 2000 | | | 1,000 mL 1,000 mL, Intravenous, | | 8 19:30 | mLs | mL/hr | | | Administer over 30 Minutes, | | PDT | | | | | ONCE, 08/31/17 at 1900, For 1 | | | | | | | dose | | | | | | + +---------+ +--------+-------+---+ +---+---+ | | | +---+---+ in this encounter"
--- OUTSIDE RECORDS SUMMARY | ~2017-10-06 | XMS | Clinical Summary ---
Demographics + + + | Address | [address] | | | [place] [address] | + + + | Home Phone | | + + + | Preferred Language | Unknown | + + + | Marital Status | Single | + + + | Baptist Affiliation | Unknown | + + + | Race | Unknown | + + + | Ethnic Group | Unknown | + + + Author + + + | Author | [facility] | | | and [place] | + + + | Organization | [facility] | | | and [...] Team Providers + +------+ + | Care Manager Ent Name | Role | Phone | + [...] + + + Current Medications + + +--------+---------+------+------+-------+ | Prescription | Sig. | Disp. | Refills | Star | End | Statu | | | | | | t | Date | s | | | | | | Date | | | + + +--------+---------+------+------+-------+ | PARoxetine (PAXIL) | Take 20 mg by mouth | | | | | Activ | | 20 mg tablet | every morning. | | | | | e | + + +--------+---------+------+------+-------+ | metoprolol | Take 50 mg by mouth | | | | | Activ | | succinate | Daily. | | | | | e | | (TOPROL-XL) 50 mg 24 | | | | | | | | hr tablet | | | | | | | + + +--------+---------+------+------+-------+ | ondansetron | Take 4 mg by mouth | | | | | Activ | | (ZOFRAN ODT) 4 mg | every 8 hours as | | | | | e | | disintegrating | needed for Nausea. | | | | | | | tablet | | | | | | | + + +--------+---------+------+------+-------+ | oxybutynin | Take 1 tablet by | 90 | 2 | 11/1 | | Activ | | (DITROPAN) 5 mg | mouth 2 times daily. | tablet | | 1/20 | | e | | tablet | | | | 17 | | | + + +--------+---------+------+------+-------+ | traZODone | Take 0.5 tablets by | 60 | 2 | 11/1 | | Activ | | (DESYREL) 50 mg | mouth nightly. | tablet | | 1/20 | | e | | tablet | | | | 17 | | | + + +--------+---------+------+------+-------+ | OMEPRAZOLE PO | Take by mouth. | | | | | Activ | | | | | | | | e | + + +--------+---------+------+------+-------+ Active Problems + + + | Problem [...] Urinary tract | | 2018 | | | MD | infection without | | | | | | hematuria, site | | | | | | unspecified (Primary | | | | | | Dx) | +--------+ + + + + from [...] + | Oxygen Saturation | 97% | 08/31/2017 2304 PDT | + + + + | [...] + + + + Plan of Treatment +--------+---------+ + + + | Date | Type | Specialty | Care Team | Description | +--------+---------+ + + + | 10/21/ | Office | | [facility], | | | 2017 | Visit | | YENI Bruno [address] | | | | | | [address] | | | | | | [place] | | | | | | [address] | | | | | | | | +--------+---------+ + + + + + + + [...] | + + + + | Specific [place] | 1.018 | 1.001 - 1.030 | [...] + | Urine - Urine, | [facility] [address] | | [address] | [place] [address] | + + + Culture, Urine (08/31/20172022) + + + + | Component | Value | Ref Range | + + + + | Culture | >100,000 CFU/ml Escherichia coli | | + + + + + + + | Specimen | Performing Laboratory | + + + | Urine - Urine, | [facility] [address] | | [address] | [place] [address] | + + + + + +--------+ [...] STEPHIE LYNN MD | | | | ([id number]) on 09/01/2017 6:55:55 AM | | | |Confirmed by STEPHIE LYNN MD ([id number]) on 09/01/2017 6:55:55 AM | | | [...] | + + + | Blood | [facility] [address] | | | [place] [address] | + + + Extra Green Top Tube (08/31/20171909) + +-------+ + | Component | Value | Ref Range | + +-------+ + | Extra Green Top Tube | Done | | + +-------+ + + + + | Specimen | Performing Laboratory | + + + | Blood | [facility] [address] | | | [place] [address] | + + + Extra Gold Top Tube (08/31/20171909) + +-------+ + | Component | Value | Ref Range | + +-------+ + | EGDT | Done | | + +-------+ + + + + | Specimen | Performing Laboratory | + + + | Blood | [facility] [address] | | | [place] [address] | + + + Extra Blue Top Tube (08/31/20171909) + +-------+ + | Component | Value | Ref Range | + +-------+ + | Extra Blue Top Tube | Done | | + +-------+ + + + + | Specimen | Performing Laboratory | + + + | Blood | [facility] | | | [place] [address] | + + + CBC no Differential [...] | + + + | Blood | [facility] [address] [place] | | | [place] [address] | + + + Lipase (08/31/20171909) + +-------+ + | Component | Value | Ref Range | + +-------+ + | LIPASE | 14 | 0 - 60 U/L | + +-------+ + + + + | Specimen | Performing Laboratory | + + + | Blood | [facility] [address] | | | [place] [address] | + + + Comprehensive Metabolic Panel [...] >=60 mL/min/1.73m2 | | [place] | RATE,ESTIMATED mL/min/1.04e2Joct than | | | | 60 Chronic [...] | + + + | Blood | [facility] [address] | | | [place] [address] | + + + from Last 3 [...] | MEDICA | xxxxxxxxxx | Medica | +1- | | | | RE | | re | [phone] | | | | PART A | | | | | | | AND B | | | | | + +--------+ +--------+ +---------+ | [facility] | [employer] | xxxxxxxxx | Indemn | [...] | Self [birth year] | Home: | [address] | | | al/Melquiades | | 1936 | [phone] | [place] [address] | | | kathryn | | | [phone] | | + +--------+ +--------+ + +"
--- OUTSIDE RECORDS SUMMARY | ~2017-10-06 | XMS | Clinical Summary ---
Demographics + + + | Address | [address] [place] [address] RD | | | [place] [address] | + + + | Home Phone | | + + + | Preferred Language | Unknown | + + + | Marital Status | Single | + + + | Rastafari Affiliation | UNK | + + + [...] Team Providers + +------+ + | Care Hospice Plan Administrator Name | Role | Phone | + +------+ + PP | Unavailable | + +------+ + Source Comments MYLA is fully live on both [facility] Amb[facility] and [facility] InPatient.[facility] Allergies Not on File Current Medications Not [...] | + + + + + | INFLUENZA VACCINE | | | | | (FLU SHOT) | 8 | | | + + + + + Results Not on filefrom Last 3 Months"
--- OUTSIDE RECORDS SUMMARY | ~2017-10-06 | XMS | Clinical Summary ---
Demographics + + + | Address | [address] | | | [place] [address] | + + + | Home Phone | | + + + | Preferred Language | Unknown | + + + | Marital Status | Single | + + + | Jehovah'S Witness Affiliation | Unknown | + + + | Race | Unknown | + + + | Ethnic Group | Unknown | + + + Author + + + | Author | [facility] | | | and Maximus | + + + | Organization | [facility] | | | and [...] Team Providers + +------+ + | Care Analysis Mgr Name | Role | Phone | + [...] + | 10/21/ | Office | | [facility], | | | 2017 | Visit | | YENI Bruno [address] | | | | | [address] | | | | | | [place] | | | | | | [address] | | | | | | | [...] | + + + + | Specific [place] | 1.018 | 1.001 - 1.030 | [...] + | Urine - Urine, | [facility] [facility] [address] | | [address] | [place] [address] | + + + Culture, Urine (08/31/20172022) + + + + | Component | Value | Ref Range | + + + + | Culture | >100,000 CFU/ml Escherichia coli | | + + + + + + + | Specimen | Performing Laboratory | + + + | Urine - Urine, | [facility] [address] | | [address] | [place] [address] | + + + + + +--------+ [...] STEPHIE LYNN MD | | | | ([id number]) on 09/01/2017 6:55:55 AM | | | |Confirmed by STEPHIE LYNN MD ([id number]) on 09/01/2017 6:55:55 AM | | | [...] | + + + | Blood | [facility] [address] | | | [place] [address] | + + + Extra Green Top Tube (08/31/20171909) + +-------+ + | Component | Value | Ref Range | + +-------+ + | Extra Green Top Tube | Done | | + +-------+ + + + + | Specimen | Performing Laboratory | + + + | Blood | [facility] [address] | | | [place] [address] | + + + Extra Gold Top Tube (08/31/20171909) + +-------+ + | Component | Value | Ref Range | + +-------+ + | EGDT | Done | | + +-------+ + + + + | Specimen | Performing Laboratory | + + + | Blood | [facility] [address] | | | [place] [address] | + + + Extra Blue Top Tube (08/31/20171909) + +-------+ + | Component | Value | Ref Range | + +-------+ + | Extra Blue Top Tube | Done | | + +-------+ + + + + | Specimen | Performing Laboratory | + + + | Blood | [facility] [address] JENNA [address] | | | [place] [address] | + + + CBC no Differential [...] | + + + | Blood | [facility] [address] | | | [place] [address] | + + + Lipase (08/31/20171909) + +-------+ + | Component | Value | Ref Range | + +-------+ + | LIPASE | 14 | 0 - 60 U/L | + +-------+ + + + + | Specimen | Performing Laboratory | + + + | Blood | [facility] [address] [facility] [address] | | | [place] [address] | + + + Comprehensive Metabolic Panel [...] GLOMERULAR FILTRATION | >=60 mL/min/1.73m2 | | CYPRIOT | RATE,ESTIMATED mL/min/1.10t5Lsbs than | | | | 60 Chronic [...] | + + + | Blood | [facility] [address] | | | [place] [address] | + + + from Last 3 [...] | | + +--------+ +--------+ +---------+ | [facility] | [facility] | [phone] | Indemn [...] | Self | [birth year] | Home: | [address] | | | al/Melquiades | | 1936 | [phone] | [place] [address] | | | kathryn | | | [phone] | | + +--------+ +--------+ + +"
--- OUTSIDE RECORDS SUMMARY | ~2017-10-06 | XMS | Clinical Summary ---
Demographics + + + | Address | [address] [place] [address] [address] | | | [place] [address] | + + + | Home Phone | | + + + | Preferred Language | Unknown | + + + | Marital Status | Single | + + + | Episcopal Affiliation | UNK | + + + [...] Team Providers + +------+ + | Care Beef Ribber Name | Role | Phone | + +------+ + PP | Unavailable | + +------+ + Source Comments MYLA is fully live on both [facility] and [facility] InPatient.[facility] Allergies Not on File Current Medications [...]
--- OUTSIDE RECORDS SUMMARY | ~2017-10-06 | XMS | Encounter Summary ---
Demographics + + + | Address | [address] | | | [place] [address] | + + + | Home Phone [...] Author + + + | Author | [facility] | | | and Maximus | + + + | Organization | [facility] | | [...] Team Providers + +------+ + | Care Youth Probation Officer Name | Role | Phone | + [...] + + | 08/31/ | Emergency | [facility] | [place], | Urinary tract | | 2018 | | [facility] | [place] [address] | infection without | | | | [place] [address] | [place] | hematuria, site | | | | [place] | [address] | unspecified (Primary | | | | [phone] | | Dx) | | | | [phone] | | | +--------+ + + + [...] sent through Care Everywhere.Bladder Infection, Female (Adult) (Romanian)in this encounter Medications at Time of Discharge [...] | 10/21/ | Office | Gastroenterology | [facility] | | 2017 | Visit | | YENI Bruno [address] | | | | | | [address] | | | | | | [place] | | | | | | [address] | | | | | | | [...] + + | Urine - Urine, | [facility] [address] | | [address] | [place] [address] | + + + + + +--------+ [...] | + + + + | Specific [place] | 1.018 | 1.001 - 1.030 | [...] + | Urine - Urine, | [facility] [address] | | Straight Cath | [place] [address] | + + + ECG 12 lead [...] STEPHIE LYNN MD | | | | ([id number]) on 09/01/2017 6:55:55 AM | | | |Confirmed by STEPHIE LYNN MD ([id number]) on 09/01/2017 6:55:55 AM | | | [...] | + + + | Blood | [facility] [address] | | | [place] [address] | + + + Extra Green Top Tube (08/31/20171909) + +-------+ + | Component | Value | Ref Range | + +-------+ + | Extra Green Top Tube | Done | | + +-------+ + + + + | Specimen | Performing Laboratory | + + + | Blood | [facility] [address] | | | [place] [address] | + + + Extra Gold Top Tube (08/31/20171909) + +-------+ + | Component | Value | Ref Range | + +-------+ + | EGDT | Done | | + +-------+ + + + + | Specimen | Performing Laboratory | + + + | Blood | [facility] [address] | | | [place] [address] | + + + Extra Blue Top Tube (08/31/20171909) + +-------+ + | Component | Value | Ref Range | + +-------+ + | Extra Blue Top Tube | Done | | + +-------+ + + + + | Specimen | Performing Laboratory | + + + | Blood | [facility] [address] | | | [place] [address] | + + + Lipase (08/31/20171909) + +-------+ + | Component | Value | Ref Range | + +-------+ + | LIPASE | 14 | 0 - 60 U/L | + +-------+ + + + + | Specimen | Performing Laboratory | + + + | Blood | [facility] [address] | | | [place] [address] | + + + Comprehensive Metabolic Panel [...] GLOMERULAR FILTRATION | >=60 mL/min/1.73m2 | | MONTENEGRIN | RATE,ESTIMATED mL/min/1.80r1Pwsz than | | | | 60 Chronic [...] + + + | Blood | [facility] [address] | | | [place] [address] | + + + CBC no Differential [...] | + + + | Blood | [facility] [address] | | | [place] [address] | + + + in this encounter [...]
[~2017-10-06 20:48] MED LIST changes: +DICYCLOMINE HCL10 MG PO; +IMODIUM A-D2 M2 PO; +K-TAB ER20 MEQ PO; +TRAZODONE HCL100 MG PO
--- NOTE | 2017-10-07 07:16 | EKG ---
[facility] [address] [facility] [place] [address] Signed Normal sinus rhythm Low voltage QRS Nonspecific T wave abnormality Abnormal ECG When compared with ECG of 15-JAN-2017 21:57, Nonspecific T wave abnormality, worse in Anterolateral leads Confirmed by KAMRAN MEJIA MD ([id number]) on 10/07/2017 7:16:32 AM Electronically Signed By: KAMRAN MEJIA MD 10/07/17 0716 PATIENT NAME: YOANDY AL NEFTALY Electrocardiogram DATE OF : 33 PHYSICIAN: KAMRAN MEJIA MD REPORT #: [id number] REPORT IS CONFIDENTIAL AND NOT TO BE RELEASED WITHOUT AUTHORIZATION
== END 2017-10-06 23:58 | disposition home or self-care (01) ==
LOC: ED 20:48
DX: R19.7 Diarrhea, unspecified (principal); R55 Syncope and collapse; E87.1 Hypo-osmolality and hyponatremia; I10 Essential (primary) hypertension; Z88.2 Allergy status to sulfonamides; Z88.0 Allergy status to penicillin; Z88.8 Allergy status to other drugs, medicaments and biological substances; Z88.5 Allergy status to narcotic agent; Z88.1 Allergy status to other antibiotic agents; Z79.899 Other long term (current) drug therapy; Z79.82 Long term (current) use of aspirin
CPT/HCPCS: 80053; 81001; 84484; 85025; 87045; 87046; 93005; 93010; 96360; 99284; J7030

== ENCOUNTER 2018-08-16 17:12 | Emergency (ER) | payer MEDICARE, OTHER ==
[~2018-08-16] VITALS: Ht 152.4 cm; Wt 63.3 kg
[~2018-08-16 17:12] MED LIST changes: +24 HOUR ALLER15.8 ML NAS; +BENZONATATE200 MG PO; +CEFPODOXIME PR200 MG PO; +CIPRO500 MG PO; +CLARITIN10 MG PO; +COLCRYS0.6 MG PO; +DIGOX125 MCG PO; +DIPHENHYDR12.5 MG/5 PO; +ELIQUIS5 MG PO; +ENTOCORT EC3 MG PO; +FLECTOR1 EACH TOP; +FLORASTOR250 MG PO; +IMIPENEM-CILAS500 MG IV; +KEFLEX500 MG PO; +KETOCONAZOLE120 ML TOP; +LEVOFLOXACIN250 MG PO; +MELATIN3 MG PO; +METOPROLOL SUCC25 MG PO; +MIRALAX17 GM PO; +MULTI VITAMIN1 EACH PO; +OMEPRAZOLE20 MG PO; +PAROXETINE HCL20 MG PO; +PAXIL10 MG PO; -PAXIL20 MG PO; -PRILOSEC20 MG PO; -TRAZODONE HCL100 MG PO; +TRAZODONE HCL50 MG PO; +TYLENOL325 MG PO; +ZOFRAN ODT4 MG PO
--- OUTSIDE RECORDS SUMMARY | 2018-08-16 17:16 | XMS ---
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 Care History Medical/Surgical 02/08/2018 [facility] - CHW SPOKE WITH PIPER CEVALLOS FOR MELVI [place]. - PATIENT HAS NO SHOWED TO APPOINTMENTS WITH PCP OFFICE. - LAST TIME PATIENT WAS SEEN BY PCP WAS IN MAY 2017. - PATIENT HAD A UROLOGIST REFERRAL AND AN APT WAS SET AT [facility] [address] [facility] ON 07/27/17 PATIENT DAUGHTER CANCELLED THE APT. - PATIENT NEEDS TO BE SEEN BY PCP AND ANOTHER REFERRAL MADE TO THE UROLOGIST. - CURRENT CHW WORKING WITH PATIENT AND PATIENT FAMILY IS LUIZ NGUEYN AT [facility]. CONTACT NUMBER [phone]. 09/20/2017 [facility] Care Recommendation: This patient has had 5 or more Emergency Department visits in the last 12 months. Patient requires education on the scope and purpose of the ED as an acute care provider not a Primary Care Provider and should not be utilized for chronic conditions. If patient returns to ED please contact Community Health WorkerPadmini at [phone].These are guidelines and the provider should exercise clinical judgment when providing care. E.D. V[facility] (12 MO.) [facility] [address] [facility] [address] T[facility] 10 NOTE: Visits indicate total known visits. ED/UCC VISIT TRACKING (12 MO.) 08/16/2018 17:[address] [facility] TYPE: Emergency COMPLAINT: - COUGH 05/15/2018 13:43 [facility] TYPE: Emergency COMPLAINT: - BREATHING TROUBLE 05/12/2018 20:[address] [facility] TYPE: Emergency COMPLAINT: - IV REPLACED DIAGNOSES: - Other shelter (current) drug therapy - Urinary tract infection, site not specified - Allergy status to narcotic agent status - Allergy status to sulfonamides status - FDC (current) use of aspirin - Allergy status to other drugs, medicaments and biological substances status - Weakness - Essential (primary) hypertension - Allergy status to penicillin 04/07/2018 12:46 [facility] [place] TYPE: Emergency DIAGNOSES: - Atelectasis - Pleural effusion, not elsewhere classified - Pneumonia, unspecified organism - Hypo-osmolality and hyponatremia - Difficulty Breathing - Fatigue 03/27/2018 23:17 [facility] TYPE: Emergency COMPLAINT: - ALTERED LOC 03/14/2018 13:38 [facility] [place] TYPE: Emergency DIAGNOSES: - Syncope - Hypo-osmolality and hyponatremia - LOC, falls - Syncope and collapse - Loss of Consciousness - Unspecified fall, initial encounter - Weakness 02/06/2018 09:30 [facility] TYPE: Emergency COMPLAINT: - POSS UTI/FALL/BLACKED OUT DIAGNOSES: - Essential (primary) hypertension - Allergy status to sulfonamides status - Allergy status to penicillin - Allergy status to other antibiotic agents status - Allergy status to other drugs, medicaments and biological substances status - Other shelter (current) drug therapy - Hypo-osmolality and hyponatremia - Urinary tract infection, site not specified - predatory animal exterminator (current) use of aspirin - Allergy status to narcotic agent status - Syncope and collapse 10/06/2017 20:48 [facility] TYPE: Emergency COMPLAINT: - SKIN TEAR LT ARM,GLF DIAGNOSES: - Syncope and collapse - Allergy status to other drugs, medicaments and biological substances status - Diarrhea, unspecified - FDC (current) use of aspirin - Allergy status to penicillin - Allergy status to sulfonamides status - Allergy status to narcotic agent status - Hypo-osmolality and hyponatremia - Essential (primary) hypertension - Other shelter (current) drug therapy - Allergy status to other antibiotic agents status 09/18/2017 16:[address] [facility] TYPE: Emergency COMPLAINT: - DIARRHEA DIAGNOSES: - Allergy status to narcotic agent status - Hypokalemia - Allergy status to penicillin - Allergy status to sulfonamides status - Allergy status to other drugs, medicaments and biological substances status - Weakness - predatory animal exterminator (current) use of aspirin - Diarrhea, unspecified - Allergy status to other antibiotic agents status - Other shelter (current) drug therapy - Noninfective gastroenteritis and colitis, unspecified - Essential (primary) hypertension 08/31/2017 16:41 [facility] [place] TYPE: Emergency DIAGNOSES: - Diarrhea (Adult) - fall/diarrhea - Abdominal Pain - Urinary tract infection, site not specified INPATIENT VISIT TRACKING (12 MO.) 05/15/2018 18:[address] [facility] [place] TYPE: Medical Surgical COMPLAINT: - ACUTE PULMONARY EMBOLISM DIAGNOSES: - Allergy status to narcotic agent status - Allergy status to other antibiotic agents status - Do not resuscitate - predatory animal exterminator (current) use of aspirin - Do not resuscitate - Gastro-esophageal reflux disease without esophagitis - Pericardial effusion (noninflammatory) - Extended spectrum beta lactamase (ESBL) resistance - predatory animal exterminator (current) use of aspirin - Unspecified Escherichia coli [E. coli] as the cause of diseases classified elsewhere - Major depressive disorder, single episode, unspecified - Allergy status to sulfonamides status - predatory animal exterminator (current) use of non-steroidal anti-inflammatories (NSAID) - Pleural effusion, not elsewhere classified - Hypoxemia - Presence of cardiac pacemaker - Other predatory animal exterminator (current) drug therapy - Unspecified abdominal pain - Allergy status to narcotic agent status - Allergy status to sulfonamides status - Other allergy status, other than to drugs and biological substances - Urinary tract infection, site not specified - Unspecified atrial fibrillation - Allergy status to penicillin - FDC (current) use of opiate analgesic - Allergy status to other antibiotic agents status - Gastro-esophageal reflux disease without esophagitis - predatory animal exterminator (current) use of inhaled steroids - Hypoxemia - FDC (current) use of inhaled steroids - Urinary tract infection, site not specified - Major depressive disorder, single episode, unspecified - Pericardial effusion (noninflammatory) - Other predatory animal exterminator (current) drug therapy - Extended spectrum beta lactamase (ESBL) resistance - Other allergy status, other than to drugs and biological substances - Unspecified abdominal pain - predatory animal exterminator (current) use of opiate analgesic - Allergy status to penicillin - Other pulmonary embolism without acute cor pulmonale - Presence of cardiac pacemaker - FDC (current) use of non-steroidal anti-inflammatories (NSAID) - Unspecified Escherichia coli [E. coli] as the cause of diseases classified elsewhere - Pleural effusion, not elsewhere classified - Unspecified atrial fibrillation 04/07/2018 21:11 [facility] TYPE: General Medicine DIAGNOSES: - Pneumonia due to Methicillin resistant Staphylococcus aureus - pneumonia, hypoxia - Sepsis, unspecified organism - Pleural effusion, not elsewhere classified - Chronic kidney disease, stage 3 (moderate) - Illness, unspecified 03/28/2018 10:27 [facility] [place] TYPE: Medical Surgical COMPLAINT: - SYNCOPE DIAGNOSES: - Dermatitis, unspecified - Presence of cardiac pacemaker - Syncope and collapse - Orthostatic hypotension - Gram-negative sepsis, unspecified - Urgency of urination - Other malaise - Metabolic encephalopathy - Paroxysmal atrial fibrillation - Headache - Pericardial effusion (noninflammatory) - predatory animal exterminator (current) use of aspirin - Gastro-esophageal reflux disease without esophagitis - Unspecified mood [affective] disorder - Psychophysiologic insomnia - Noninfective gastroenteritis and colitis, unspecified - Pneumonia due to other Gram-negative bacteria [facility]2018 [facility] DIAGNOSES: - Acute cystitis without hematuria - Unspecified fall, initial encounter - Syncope and collapse - Pericardial effusion (noninflammatory) - Hypo-osmolality and hyponatremia - Weakness - Essential (primary) hypertension [email or web address]
--- NOTE | 2018-08-17 17:36 | EKG ---
[facility] [address] [facility] [place], [place] [address] Signed Sinus rhythm with 1st degree AV block Cannot rule out Anterior infarct , age undetermined Abnormal ECG When compared with ECG of 27-MAR-2018 23:19, [place] interval has increased ST no longer elevated in Inferior leads QT has shortened Confirmed by HEIDY GUZMAN DO ([id number]) on 08/17/2018 5:36:07 PM Electronically Signed By: HEIDY GUZMAN DO 08/17/18 1736 PATIENT NAME: YOANDY AL NEFTALY Electrocardiogram DATE OF : 33 PHYSICIAN: HEIDY GUZMAN DO REPORT #: [id number] REPORT IS CONFIDENTIAL AND NOT TO BE RELEASED WITHOUT AUTHORIZATION
== END 2018-08-16 19:31 | disposition home or self-care (01) ==
LOC: ED 17:12
DX: J06.9 Acute upper respiratory infection, unspecified (principal); I12.9 Hypertensive chronic kidney disease with stage 1 through stage 4 chronic kidney disease, or unspecified chronic kidney disease; N18.3 Chronic kidney disease, stage 3 (moderate); I48.91 Unspecified atrial fibrillation; Z88.2 Allergy status to sulfonamides; Z88.8 Allergy status to other drugs, medicaments and biological substances; Z88.5 Allergy status to narcotic agent; Z88.1 Allergy status to other antibiotic agents; Z79.899 Other long term (current) drug therapy; Z79.82 Long term (current) use of aspirin
CPT/HCPCS: 51701; 71045; 80053; 81001; 83605; 85025; 87502; 93005; 93010; 99284-25

== ENCOUNTER 2018-09-02 17:43 | Emergency (ER) | payer MEDICARE, OTHER ==
[~2018-09-02] VITALS: Ht 152.4 cm; Wt 63.3 kg
--- OUTSIDE RECORDS SUMMARY | ~2018-09-02 | XMS | Clinical Summary ---
Demographics + + + | Address | [id number] [place] [address] RD | | | [place] [address] | + + + | Home Phone | | + + + | Preferred Language | Unknown | + + + | Marital Status | Single | + + + | Tenriism Affiliation | UNK | + + + | Race | White | + + + | Ethnic Group | Not or | + + + Author + + + | Author | NON REVENUE LOCATIONS | + + + | Organization | NON REVENUE LOCATIONS | + + + | Address | Unknown | + + + | Phone | Unavailable | + + + Support + + +---------+ + | Name | Relationship | Address | Phone | + + +---------+ + | NONE,GIVEN | ECON | Unknown | Unavailable | + + +---------+ + Care Team Providers + +------+ + | Care Sanipractic Physician Name | Role | Phone | + +------+ + PP | Unavailable | + +------+ + Source Comments MYLA is fully live on both [facility] and [facility] Allergies Not on File Current Medications Not on file Active Problems Not on file Social History + +-------+ +--------+------+ | Tobacco Use | Types | Packs/Day | Years | Date | | | | | Used | | + +-------+ +--------+------+ | Never Assessed | | | | | + +-------+ +--------+------+ + + + | Sex Assigned at | Date Recorded | | | | + + + | Not on file | | + + + Plan of Treatment + + + + + | Health Maintenance | Due Date | Last Done | Comments | + + + + + | Pneumococcal (Adult) | | | | | (1 of 2 - PCV13) | 0 | | | + + + + + | Influenza (Flu) | | | | | vaccination (#1) | 8 | | | + + + + + Results Not on filefrom Last 3 Months"
--- OUTSIDE RECORDS SUMMARY | ~2018-09-02 | XMS | Encounter Summary ---
Demographics + + + | Address | [address] | | | [place] [address] | + + + | Home Phone | | + + + | Preferred Language | Unknown | + + + | Marital Status | Single | + + + | Presybeterian Affiliation | Unknown | + + + | Race | Unknown | + + + | Ethnic Group | Unknown | + + + Author + + + | Author | [facility] | | | and [facility] | + + + | Organization | [facility] | | [...] Team Providers + +------+ + | Care Check Writing Machine Operator Name | Role | Phone | + +------+ + | Mandy Yanez PA-C | PCP | | + +------+ + Reason for Visit +--------+ + | Reason | Comments | +--------+ + | Other | latitude | +--------+ + Encounter Details +--------+ + + + + | Date | Type | Department | Care Team | Description | +--------+ + + + + | 09/01/ | Telephone | [facility] | Ankit Tovar | Other (latitude) | | 2019 | | CARDIOLOGY [address] | MD [place] [address] | | | | | [place], | [address] [place] | | | | | [place] [address] | [place] [address] | | | | | [phone] | [phone] | | | | | | | | +--------+ + + + [...] + + + as of this encounter Plan of Treatment +--------+ + + + + | Date | Type | Specialty | Care Team | Description | +--------+ + + + + | 09/11/ | Implant | Cardiology | Ankit Tovar | Remote Device | | 2019 | Monitor | | MD [place] [address] | Interrogation | | | | | [address] | (Primary Dx); | | | | | [place] [address] | Pacemaker, [place] | | | | | [phone] | Scientific, Single | | | | | | Lead, MRI Capable | | | | | | 03/17/18 [place]; | | | | | | Syncope, unspecified | | | | | | syncope type | +--------+ + + + + | 10/10/ | Office | Cardiology | Ankit Tovar | | | 2019 | Visit | | MD [place] [address] | | | | | | [address] | | | | | | [place] [address] | | | | | | [phone] | | | | | | | | +--------+ + + + + as of this encounter Visit Diagnoses Not on filein this encounter"
--- OUTSIDE RECORDS SUMMARY | ~2018-09-02 | XMS | Clinical Summary ---
Demographics + + + | Address | [address] | | | [place] [address] | + + + | Home Phone | | + + + | Preferred Language | Unknown | + + + | Marital Status | Single | + + + | Scientologist Affiliation | Unknown | + + + | Race | Unknown | + + + | Ethnic Group | Unknown | + + + Author + + + | Author | [facility] | | | and Maximus | + + + | Organization | [facility] | | | and [...] Team Providers + +------+ + | Care Sander And Buffer Name | Role | Phone | + [...] + + +---------+---------+------+------+-------+ | metoprolol | Take 25 mg by mouth | | | | | Activ | | succinate | Daily. | | | | | e | | (TOPROL-XL) 25 mg 24 | | | | | [...] | | | + + +---------+---------+------+------+-------+ | budesonide | Take 3 capsules by | 90 | 2 | 06/0 | | Activ | | (ENTOCORT EC) 3 mg | mouth every morning. | capsule | | 4/20 | | e | | 24 hr capsule | | | | 18 | | | + + +---------+---------+------+------+-------+ | omeprazole | Take 20 mg by mouth | | | | | Activ | | (PRILOSEC) 20 mg | Twice daily as | | | | | e | | capsule | needed (may decrease | | | | | | | | to daily). | | | | | | + + +---------+---------+------+------+-------+ | loratadine | Take 10 mg by mouth | | | | | Activ | | (CLARITIN) 10 mg | as needed. | | | | | e | | tablet | | | | | | | + + +---------+---------+------+------+-------+ | fluticasone | 2 sprays by Nasal | | | | | Activ | | (FLONASE) 50 | route as needed. | | | | | e | | mcg/nasal spray | | | | | | | + + +---------+---------+------+------+-------+ | aspirin 81 mg | Take 81 mg by mouth | | | | | Activ | | chewable tablet | Daily. | | | | | e | + + +---------+---------+------+------+-------+ | cephalexin | Take 500 mg by mouth | | 0 | 08/2 | | Activ | | (KEFLEX) 500 mg | 3 times daily. 7 | | | 6/20 | | e | | capsule | days | | | 18 | | | + + +---------+---------+------+------+-------+ | traZODone | Take 75 mg by mouth | | | | | Activ | | (DESYREL) 50 mg | nightly. | | | | | e | | tablet | | | | | | | + + +---------+---------+------+------+-------+ | oxybutynin | Take 5 mg by mouth 2 | | | | | Activ | | (DITROPAN) 5 mg | times daily. | | | | | e | | tablet | | | | | | | + + +---------+---------+------+------+-------+ | polyethylene | Take 8.5-17 g by | | | | | Activ | | glycol (MIRALAX) | mouth Daily as | | | | | e | | powder | needed. | | | | | | + + +---------+---------+------+------+-------+ | | Take 1 tablet by | | | | | Activ | | HYDROcodone-acetamin | mouth 3 times daily | | | | | e | | ophen (NORCO) 5-325 | as needed for Pain. | | | | | | | mg per tablet | | | | | | | + + +---------+---------+------+------+-------+ | acetaminophen | Take 650-975 mg by | | | | | Activ | | (TYLENOL) 325 mg | mouth every 8 hours | | | | | e | | tablet | as needed for Pain | | | | | | | | or Fever (max 12 | | | | | | | | tablets daily). | | | | | | + + +---------+---------+------+------+-------+ | colchicine 0.6 mg | Take 1 tablet by | 30 | 0 | 10/0 | | Activ | | tablet | mouth 2 times daily. | tablet | | 5/20 | | e | | | | | | 18 | | | + + +---------+---------+------+------+-------+ | levoFLOXacin | Take 250 mg by mouth | | | | | Activ | | (LEVAQUIN) 250 mg | Daily. | | | | | e | | tablet | | | | | | | + + +---------+---------+------+------+-------+ Active Problems + + + | Problem | Noted Date | + + + | Paroxysmal atrial fibrillation (HCC) | 03/17/2018 | + + + | Pacemaker reprogramming/check | 03/17/2018 | + + + | Pacemaker, [employer], Single Lead, MRI Capable 03/17/18 | 03/17/2018 | | Juventino | | + + + + + | Overview: Formatting of this note may be different from the | | original. MODEL NAME MODEL# SERIAL# DATE IMPLANTED GENERATOR | | [employer] Accolade MRI [id number] 03/17/18 RV LEAD | | [employer] Ingevity MRI [id number] 03/17/18 Indication: | | Syncope with documented pauses | + + +---------+ + | Syncope | 03/14/2018 | +---------+ + + + | Overview: Echocardiogram March 2018 shows Left ventricle is | | normal in size and function. Ejection fraction is estimated at | | 60-65%. Impaired relaxation compatible with diastolic dysfunction | | (reversed E/A ratio). Structurally normal mitral valve with mild | | insufficiency. Structurally normal tricuspid valve with mild | | regurgitation and peak velocity consistent with RVSP 31-36 mmHg. | | Left atrium is mildly enlarged. There is a moderate | | circumferential pericardial effusion noted. No evidence of | | cardiac tamponade. No significant changes compared with patient's | | prior study of April 2017. With documented pauses S/P | | Permanent Pacemaker Placement 03/17/18 by Godfrey Jauregui MD | + + + + + | UTI (urinary tract infection) | 03/14/2018 | + + + | Weight loss | 10/19/2017 | + + + | Beta Blockers - Daily Use | 10/19/2017 | + + + | H/O Hysterectomy | 10/19/2017 | + + + | Diarrhea, unspecified type | 10/14/2017 | + + + | Lower abdominal pain | 10/14/2017 | + + + | Weight loss, unintentional | 10/14/2017 | + + + | H/O Colonic polyps | 10/14/2017 | + + + | Advanced age | 10/14/2017 | + + + | Acute cystitis without hematuria | 04/14/2017 | + + + | Leucocytosis | 04/14/2017 | + + + | CKD (chronic kidney disease), stage III (HCC) | 04/14/2017 | + + + + + | Overview: GFR 30-40% | + + + + + | Dehydration with hyponatremia [...] Pericardial effusion | | + + + + + | Overview: Echocardiograph done on 04/20/2017 1. Normal left | | ventricular size, wall thickness and motion. Preserved left | | ventricular systolic function. LVEF is 70-75%.2. Moderate | | circumferential pericardial effusion without evidence of cardiac | | tamponade.3. Normal valvular structure.4. When compared to | | echocardiography on 04/15/17, no significant | | changes.Echocardiograph done on .Left ventricle is | | normal in size and function. Ejection fraction is estimated at | | 62%.2.Structurally normal tricuspid valve with mild regurgitation | | and peak velocity consistent with RVSP 40-45 mmHg.3.There is | | mild to moderate pericardial effusion noted predominantly | | adjacent to the left ventricle.4.There is no echocardiographic | | evidence of hemodynamic significance.5.Compared with patient's | | prior study of April 2016, pericardial effusion may have | | increased in size.6.Previous study was of suboptimal | | quality.Holter monitor 48 hour done on . The | | predominant rhythm is normal sinus with the heart rate ranging | | between 58 and 86 beats per minute. The average heart rate was | | 67 beats per minute during the 48:32 hour recording. 2. Very | | rare premature ventricular contractions including only two | | ventricular singles. 3. Rare premature atrial contractions | | including four couplets and one three beat paroxysmal atrial | | tachycardia run at a rate of 105 beats per minute (09:57-3). 4. | | 25 runs of bradycardia with the longest run 60 beats (04:34-2) | | and the minimum rate 56 beats per minute (04:35-2). 5. No | | symptoms reported, no diary returned. Echocardiograph done on | | 11/08/2014 at [facility] 1.Left ventricular ejection | | fraction is preserved at 79%. Wall motion is normal and global | | longitudinal strain is very mildly reduced at 17%. This suggests | | a very mild intrinsic abnormality of left ventricular systolic | | function 2.Left ventricular diastolic function is clearly | | abnormal with reduced septal and lateral early diastolic | | myocardial relaxation velocities.3.Right ventricle, normal size: | | normal function.4.Atria biatrial size normal.5.Aortic valve: | | Trileaflet, minimal aortic annular calcification.Carotid | | Ultrasound done on 01/06/2012 at [facility] to 15% | | diameter narrowing of the right. 16 to 49% narrowing on the | | left.Echocardiograph done on 01/06/2012 at [facility] | | [facility].LV systolic function is normal. 2.Ejection fraction | | estimates at 60% to 65%.3. Chamber dimensions suggest mild left | | atrial enlargement.4.There is no LVH. 5.No significant gradient | | across the aortic valve. 6.Mild mitral and tricuspid | | regurgitation. 7.There appears to be a small pericardial | | effusion. 8.Some views were difficult to obtain because of | | difficulty in patient positioning.9.There is borderline pulmonary | | hypertension. 10.There are no obvious clots, masses, or | | vegetations seen.6.Mitral Valve structure: Structurally normal, | | Trace regurgitation.7.Tricuspid valve: Trace regurgitation, | | Structure normal, not enough for estimation of pulmonary artery | | pressure.8.Pulmonary Valve: Inadequately visualized, trace | | regurgitation.9.Incidental finding: There is a circumferential | | pericardial effusion that would be considered small. This is a | | definite effusion, however. There is almost certainly some fluid | | present in the left and right pleural spaces and the cause for | | the pleural effusion is not readily apparent from this study. | | Comparison with the prior study that was done on 01/06/2012 and | | interpreted by Dr. Rudy Cameron at [facility] shows that | | there was a small pericardial effusion noted at the time and | | slight mitral and tricuspid regurgitation. No mention is made of | | diastolic function or pleural effusions. | + + + +---+ | Mixed hyperlipidemia | | + +---+ | Incontinence | | + +---+ | Asthma | | + +---+ | Atrophic vaginitis | | + +---+ | Hypertension | | + +---+ | Chronic cough | | + +---+ | Chronic neck pain | | + +---+ | Depressive disorder | | + +---+ | Fatigue | | + +---+ | GERD (gastroesophageal reflux disease) | | + +---+ | Hearing loss | | + +---+ | Hyperlipidemia | | + +---+ + + | Overview: Triglycerides 487 | + + + +---+ | Arthritis | | + +---+ Encounters +--------+ + + + + | Date | Type | Specialty | Care Team | Description | +--------+ + + + + | 09/01/ | Telephone | | Ankit Tovar | Other (latitude) | | 2019 | | | MD [place] | | +--------+ + + + + from Last 3 Months Family History + + +------+ + | Medical History | Relation | Name | Comments | + + +------+ + | Other (see comment) | Father | | hypothermia | + + +------+ + | No known problems | Mother | | | + + [...] + + + | Blood Pressure | 111/48 | 04/07/20182019 PDT | + + + + | Pulse | 84 | 04/07/20182019 PDT | + + + + | Temperature | 37.3 C (99.2 F) | 04/07/2018 1250 PDT | + + + + | Respiratory Rate | 25 | 04/07/20182019 PDT | + + + + | Oxygen Saturation | 97% | 04/07/2018 1945 PDT | + + + + | Inhaled Oxygen | - | - | | Concentration | | | + + + + | Weight | 68.3 kg (150 lb 9.2 | 04/07/2018 125 PDT | | | oz) | | + + + + | Height | 152.4 cm (5') | 04/07/20180 PDT | + + + + | Body Mass Index | 29.41 | 04/07/20180 PDT | + + + + Plan of Treatment +--------+ + + + + | Date | Type | Specialty | Care Team | Description | +--------+ + + + + | 09/11/ | Implant | | Ankit Tovar | Remote Device | | 2019 | Monitor | | MD Jose Francisco Henderson W | Interrogation | | | | | [address] [place] | (Primary Dx); | | | | | [place] [address] | Pacemaker, Logan | | | | | [phone] | Scientific, Single | | | | | | Lead, MRI Capable | | | | | | 03/17/18 Juventino; | | | | | | Syncope, unspecified | | | | | | syncope type | +--------+ + + + + | 10/10/ | Office | | Ankit Tovar | | | 2018 | Visit | | MD Jose Francisco Henderson W | | | | | | [address] [place] | | | | | | [place] [address] | | | | | | [phone] | | | | | | | | +--------+ + + + + + + + + + | Health Maintenance | Due Date | Last Done | Comments | + + + + + | Vaccine: | | | | | Dtap/Tdap/Td (1 - | 4 | | | | Tdap) | | | | + + + + + | Vaccine: Zoster (1 | | | | | of 2) | 5 | | | + + + + + | Vaccine: | | | | | Pneumococcal 65+ | 0 | | | | Low/Medium Risk (1 | | | | | of 2 - PCV13) | | | | + + + + + | Adult Annual | | | | | Wellness Visit | 5 | | | + + + + + | Vaccine: Influenza | | | | | (#1) | 8 | | | + + + + + Implants + +--------+-------+ +--------+--------+--------+ | Implanted | Type | Area | Manufacture | Device | Expira | Model | | | | | r | | tion | / | | | | | | Identi | Date | Serial | | | | | | fier | | / Lot | + +--------+-------+ +--------+--------+--------+ | Lead Pacer Actv Fix Str 52cm | Lead | N/A: | JONAS | [id number] | 01/03/ | [id number] | | - [id number]: Qty: 1 on | | Heart | SCI[employer]IFIC | [id number] | 2019 | /[id number] | | 03/17/2018 by Godfrey Jauregui | | | JAYLEEN [employer] | 58 | | 3 | | MD Remy | | | | | | /[id number] | | | | | | | | 9 | + +--------+-------+ +--------+--------+--------+ | Pacemaker Accolade Vr Mri - | Pacema | N/A: | JONAS | [id number] | 07/13/ | [id number] | | [id number]: Qty: 1 on | ker | Heart | SCI[employer]IFIC | [id number] | 2019 | /[id number] | | 03/17/2018 by Godfrey Jauregui | | | JAYLEEN [employer] | 04 | | 3 | | MD Remy | | | | | | /[id number] | | | | | | | | 7 | + +--------+-------+ +--------+--------+--------+ Results Not on filefrom Last 3 Months Insurance + +--------+ +--------+ +---------+ | Payer | Benefi | Subscriber | Type | Phone | Address | | | t Plan | ID | | | | | | / | | | | | | | Group | | | | | + +--------+ +--------+ +---------+ | MEDICARE | MEDICA | [id number] | Medica | [phone] | | | RE | | re | [phone] | | | | PART A | | | | | | | AND B | | | | | + +--------+ +--------+ +---------+ | [facility] | [employer] | [id number] | Indemn | | | | SERVICE [...] | Self [birth year] Home: | [address] | | | al/Fam | | [phone] | [phone] | [place] [address] | | | kathryn | | | [phone] | | + +--------+ +--------+ + +"
--- OUTSIDE RECORDS SUMMARY | ~2018-09-02 | XMS | Clinical Summary ---
Demographics + + + | Address | [address] | | | [place] [address] | + + + | Home Phone | | + + + | Preferred Language | Unknown | + + + | Marital Status | Unknown | + + + | Yazidism Affiliation | Unknown | + + + | Race | Unknown | + + + | Ethnic Group | Unknown | + + + Author + + + | Author | [facility] | + + + | Organization | [facility] | + + + | Address | Unknown | + + + | Phone | Unavailable | + + + Support + + +---------+ + | Name | Relationship | Address | Phone | + + +---------+ + | Doretha Fuentes | ECON | Unknown | | + + +---------+ + Care Team Providers + +------+ + | Care Lithograph Designer Name | Role | Phone | + +------+ + | Mandy Yanez PA-C | PP | | + +------+ + Allergies + + + + + + | Active Allergy | Reactions | Severity | Noted | Comments | | | | | Date | | + + + + + + | Diphenhydramine | Other (See | Medium | 02/13/20 | UNKNOWN | | | Comments), Anxiety | | 15 | | + + + + + + | Hydromorphone | Nausea and Vomiting | Low | 04/13/20 | | | | | | 17 | | + + + + + + | Levofloxacin | Other (See | High | 02/13/20 | UNKNOWN | | | Comments), Hives | | 15 | | + + + + + + | Nitrofurantoin | Other (See Comments) | Medium | 02/13/20 | Unknown reaction | | | | | 15 | UNKNOWN | + + + + + + | Morphine | Other (See | Medium | 02/13/20 | UNKNOWN | | | Comments), Nausea | | 15 | | | | and Vomiting | | | | + + + + + + | Promethazine | Other (See | Medium | 02/13/20 | UNKNOWN | | | Comments), Nausea | | 15 | | | | and Vomiting | | | | + + + + + + | Pseudoephedrine | Other (See | Medium | 02/13/20 | UNKNOWN | | | Comments), Anxiety | | 15 | | + + + + + + | Metoclopramide | Other (See | Medium | 02/13/20 | UNKNOWN | | | Comments), Nausea | | 15 | | | | and Vomiting | | | | + + + + + + | Sulfamethoxazole-Tri | Other (See | High | 02/13/20 | UNKNOWN | | methoprim | Comments), Hives | | 15 | | + + + + + + Current Medications + + +--------+---------+------+------+-------+ | Prescription | Sig. | Disp. | Refills | Star | End | Statu | | | | | | t | Date | s | | | | | | Date | | | + + +--------+---------+------+------+-------+ | benzonatate | Take 200 mg by mouth | | | | | Activ | | (TESSALON) 200 MG | 3 (three) times | | | | | e | | capsule | daily as needed for | | | | | | | | Cough. | | | | | | + + +--------+---------+------+------+-------+ | diclofenac | Place 1 patch onto | | | | | Activ | | (FLECTOR) 1.3 % | the skin 2 (two) | | | | | e | | patch | times daily. | | | | | | + + +--------+---------+------+------+-------+ | fluticasone | 2 sprays by Each | | | | | Activ | | (FLONASE) 50 MCG/ACT | Nare route daily. | | | | | e | | nasal | | | | | | | + + +--------+---------+------+------+-------+ | loratadine | Take 10 mg by mouth | | | | | Activ | | (CLARITIN) 10 MG | daily as needed for | | | | | e | | tablet | Allergies. | | | | | | + + +--------+---------+------+------+-------+ | metoprolol | Take 25 mg by mouth | | | | | Activ | | (TOPROL-XL) 50 MG 24 | nightly. | | | | | e | | hr | | | | | | | | tabletIndications: | | | | | | | | Hypertension | | | | | | | + + +--------+---------+------+------+-------+ | Multiple | Take 1 tablet by | | | | | Activ | | Vitamins-Minerals | mouth daily. | | | | | e | | (MULTIVITAMIN WITH | | | | | | | | MINERALS) tablet | | | | | | | + + +--------+---------+------+------+-------+ | Misc. Throat | Use as directed in | | | | | Activ | | Products (OASIS | the mouth or throat. | | | | | e | | MOISTURIZING | | | | | | | | MOUTHWASH MT) | | | | | | | + + +--------+---------+------+------+-------+ | omeprazole | Take 20 mg by mouth | | | | | Activ | | (PRILOSEC) 20 MG | daily. | | | | | e | | capsule | | | | | | | + + +--------+---------+------+------+-------+ | oxybutynin | Take 5 mg by [...] + + +--------+---------+------+------+-------+ | traZODone | Take 50 mg by mouth | | | | | Activ | | (DESYREL) 50 MG | nightly. sleep | | | | | e | | tablet | | | | | | | + + +--------+---------+------+------+-------+ | aspirin 81 MG | Take 81 mg by mouth | | | | | Activ | | chewable tablet | daily with | | | | | e | | | breakfast. | | | | | | + + +--------+---------+------+------+-------+ | acetaminophen | Take 650-975 mg by | | | | | Activ | | (TYLENOL) 325 MG | mouth. | | | | | e | | tablet | | | | | | | + + +--------+---------+------+------+-------+ | polyethylene | Take 8.5-17 g by | | | | | Activ | | glycol (GLYCOLAX) | mouth daily as | | | | | e | | powder | needed. | | | | | | + + +--------+---------+------+------+-------+ | digoxin (LANOXIN) | Take 125 mcg by | | | | | Activ | | 0.125 MG | mouth daily. Pt | | | | | e | | tabletIndications: | takes 1 tablet Mon, | | | | | | | Chronic Atrial | Abel, Johnnie, Kojo, Pio | | | | | | | Fibrillation | for A-Fib | | | | | | + + +--------+---------+------+------+-------+ | melatonin 3 MG | Take 3 mg by mouth | | | | | Activ | | TABS | nightly. | | | | | e | + + +--------+---------+------+------+-------+ | | Take 1 tablet by | 20 | 0 | 10/3 | | Activ | | HYDROcodone-acetamin | mouth every 8 | tablet | | 1/20 | | e | | ophen (NORCO) 5-325 | (eight) hours. | | | 18 | | | | MG per tablet | | | | | | | + + +--------+---------+------+------+-------+ Active Problems + + + | Problem | Noted Date | + + + | Pneumonia of left lower lobe due to methicillin-resistant | 04/12/2018 | | Staphylococcus aureus (MRSA) (HCC) | | + + + | Paroxysmal atrial fibrillation (HCC) | 04/08/2018 | + + + | Arthritis | 04/07/2018 | + + + | Chronic cough | 04/07/2018 | + + + | Depressive disorder | 04/07/2018 | + + + | Fatigue | 04/07/2018 | + + + | GERD (gastroesophageal reflux disease) | 04/07/2018 | + + + | Hearing loss | 04/07/2018 | + + + | Hyperlipidemia | 04/07/2018 | + + + + + | Overview: Overview: | | Triglycerides 487 | + + + + + | Hypertension | 04/07/2018 | + + + | Incontinence | 04/07/2018 | + + + | Pericardial effusion | 04/07/2018 | + + + + + | Overview: Overview: Echocardiograph done on 04/20/2017 1. | | Normal left ventricular size, wall thickness and motion. | | Preserved left ventricular systolic function. LVEF is 70-75%.2. | | Moderate circumferential pericardial effusion without evidence of | | cardiac tamponade.3. Normal valvular structure.4. When compared | | to echocardiography on 04/15/17, no significant | | changes.Echocardiograph done on 04/15/20171.Left ventricle is | | normal in size [...] Echocardiograph done on | | 11/08/2014 at [facility] 1.Left ventricular ejection | | fraction is [...] | | Ultrasound done on 01/06/2012 at [facility] to 15% | | diameter narrowing of the right. 16 to 49% narrowing on the | | left.Echocardiograph done on 01/06/2012 at [facility] | | [facility]1.LV systolic function is normal. 2.Ejection fraction [...] | interpreted by Dr. Rudy Cameron at [facility] shows that | | there was a small pericardial effusion noted at the time and | | slight mitral and tricuspid regurgitation. No mention is made of | | diastolic function or pleural effusions. | + + + + + | Sensorineural hearing loss | 04/07/2018 | + + + | Vitamin D deficiency | 04/07/2018 | + + + | HCAP (healthcare-associated pneumonia) | 04/07/2018 | + + + | Loculated pleural effusion | 04/07/2018 | + + + | Anemia | 04/07/2018 | + + + | Pacemaker | 03/17/2018 | + + + + + | Overview: Overview: | | Formatting of this note may be different from the original. | | MODEL NAME MODEL# SERIAL# DATE IMPLANTED | | GENERATOR [employer] Accolade MRI [id number] 03/17/18 | | RV LEAD [employer] Ingevity MRI [id number] 03/17/18 | | Indication: Syncope with documented pauses | + + + + + | Paroxysmal atrial fibrillation (HCC) | 03/17/2018 | + + + | Hx of hysterectomy | 10/19/2017 | + + + | History of colonic polyps | 10/14/2017 | + + + | Weight loss, unintentional | 10/14/2017 | + + + | CKD (chronic kidney disease), stage III (HCC) | 04/14/2017 | + + + + + | Overview: Overview: | | GFR 30-40% | + + + + + | Declining functional status | 08/27/2015 | + + + + + | Overview: Overview: Patient and daughter endorse patient is | | not very active; does not do own shopping. Short of breath | | easily, but no complaint of chest discomfort. | + + + + + | Chronic UTI | 08/26/2015 | + + + | Nausea | 05/20/2015 | + + + Resolved Problems + + + + | Problem | Noted | Resolved | | | Date | Date | + + + + | Sepsis (HCC) | 04/08/20 | | | | 18 | 8 | + + + + | Hyponatremia | 04/07/20 | | | | 18 | 8 | + + + + | Leukocytosis | 04/07/20 | | | | 18 | 8 | + + + + Immunizations + + + + | Name | Dates Previously Given | Next Due | + + + + | INFLUENZA PF, | 04/08/2018 (Deferred: - pt septic) | | | QUADRIVALENT | | | | (PED/ADOL/ADULT) | | | + + + + | Pneumococcal | 04/09/2018 (Deferred: - Pt believes she | | | Polysaccharide | received in last 5 years and does not want | | | 23-valent | another.), 04/08/2018 (Deferred: - pt | | | | septic) | | + + + + Family History + + +------+ + | Medical History | Relation | Name | Comments | + + +------+ + | No Known Problems | Daughter | | | + + +------+ + | No Known Problems | Daughter | | | + + +------+ + | No Known Problems | Daughter | | | + + +------+ + | No Known Problems | Father | | from exposure in the snow | + + +------+ + | Tuberculosis | Mother | | from TB | + + +------+ + | No Known Problems | Son | | | + + +------+ + + +------+ + + | Relation | Name | Status | Comments | + +------+ + + | Daughter | | | | + +------+ + + | Daughter | | | | + +------+ + + | Daughter | | | | + +------+ + + | Father | | | | + +------+ + + | Mother | | | | + +------+ + + | Son | | | | + +------+ + [...] + + + | Blood Pressure | 123/60 | 04/13/2018 11:52 AM PDT | + + + + | Pulse | 64 | 04/13/2018 11:52 AM PDT | + + + + | Temperature | 36.8 C (98.3 F) | 04/13/2018 11:52 AM PDT | + + + + | Respiratory Rate | 18 | 04/13/2018 11:52 AM PDT | + + + + | Oxygen Saturation | 93% | 04/13/2018 11:52 AM PDT | + + + + | Inhaled Oxygen | - | - | | Concentration | | | + + + + | Weight | 69.1 kg (152 lb 6.4 | 04/13/2018 2:53 AM PDT | | | oz) | | + + + + | Height | 152.4 cm (5') | 04/08/2018 1:14 PM PDT | + + + + | Body Mass Index | 29.76 | 04/13/2018 2:53 AM PDT | + + + + Plan [...] +------+-------+ + | MEDICARE | MEDICA | [id number] | | | [address] | | | RE | | | | [place] [address] | | | IP-OP | | | | | + +--------+ +------+-------+ + | [facility] | YELLOW | [id number] | | | | | PLANS | [...] | Self | [birth year] | Home: | [address] | | | al/Fam | | 1936 | [phone] | [place] [address] | | | [place] | | | [phone] | | + +--------+ +--------+ + +"
--- OUTSIDE RECORDS SUMMARY | ~2018-09-02 | XMS | Clinical Summary ---
Demographics + + + | Address | [address] | | | [place] [address] | + + + | Home Phone | | + + + | Preferred Language | Unknown | + + + | Marital Status | Unknown | + + + | Scientology Affiliation | Unknown | + + + | Race | Unknown | + + + | Ethnic Group | Unknown | + + + Author + + + | Author | [facility] | + + + | Organization | [facility] | + + + | Address | Unknown | + + + | Phone | Unavailable | + + + Support + + +---------+ + | Name | Relationship | Address | Phone | + + +---------+ + | Doretha Fuentes | ECON | Unknown | | + + +---------+ + Care Team Providers + +------+ + | Care Line Closer Name | Role | Phone | + [...] Echocardiograph done on | | 11/08/2014 at [facility] 1.Left ventricular ejection | | fraction [...] | | Ultrasound done on 01/06/2012 at [facility]1 to 15% | | diameter narrowing of the right. 16 to 49% narrowing on the | | left.Echocardiograph done on 01/06/2012 at [facility] | | [facility]1.LV systolic function is normal. 2.Ejection fraction [...] | interpreted by Dr. Rudy Cameron at [facility] shows that | | there was a [...] MODEL# SERIAL# DATE IMPLANTED | | GENERATOR [employer] Accolade MRI [id number] 03/17/18 | | RV LEAD [employer] Ingevity MRI [id number] 03/17/18 | | Indication: Syncope with documented [...] +------+-------+ + | MEDICARE | MEDICA | [id number] | | | [address] | | | RE | | | | [place] [address] | | | IP-OP | | | | | + +--------+ +------+-------+ + | CITIZEN [place] | YELLOW | [id number] | | | | | PLANS | [...] | Self | [birth year] | Home: | [address] | | | al/Fam | | 1936 | [phone] | [place] [address] | | | kathryn | | | [phone] | | + +--------+ +--------+ + +"
--- OUTSIDE RECORDS SUMMARY | ~2018-09-02 | XMS | Encounter Summary ---
Demographics + + + | Address | [address] | | | [place] [address] | + + + | Home Phone | | + + + | Preferred Language | Unknown | + + + | Marital Status | Single | + + + | Latter Day Affiliation | Unknown | + + + | Race | Unknown | + + + | Ethnic Group | Unknown | + + + Author + + + | Author | [facility] | | | and Maximus | + + + | Organization | [facility] | | | [...] Team Providers + +------+ + | Care Diaper Folder Name | Role | Phone | + [...] [address] | | | | [place], | [address] [place] | | | | | [place] [address] | [place] [address] | | | | | [phone] | [phone] | | | | | | | [...] Dx); | | | | | [place] [address] | Pacemaker, Jeddo | | | | | [phone] | Scientific, Single | | | | [...] | | | | | | [place] [address] | | | | | | [phone] | | | | | | | | +--------+ + + + + as of this encounter Visit Diagnoses Not on filein this encounter"
--- OUTSIDE RECORDS SUMMARY | ~2018-09-02 | XMS | Clinical Summary ---
Demographics + + + | Address | [address] | | | [place] [address] | + + + | Home Phone | | + + + | Preferred Language | Unknown | + + + | Marital Status | Single | + + + | Orthodox Affiliation | Unknown | + + + | Race | Unknown | + + + | Ethnic Group | Unknown | + + + Author + + + | Author | [facility] | | | and Maximus | + + + | Organization | [facility] | | | and [...] Team Providers + +------+ + | Care Security System Analyst Name | Role | Phone | + [...] 03/17/2018 | + + + | Pacemaker, [employer], Single Lead, MRI Capable 03/17/18 | 03/17/2018 | | Juventino | | + + + + + | Overview: Formatting of this note may be different from the | | original. MODEL NAME MODEL# SERIAL# DATE IMPLANTED GENERATOR | | [employer] Accolade MRI [id number] 03/17/18 RV LEAD | | [employer] Ingevity MRI [id number] 03/17/18 Indication: | | Syncope with documented [...] Echocardiograph done on | | 11/08/2014 at [facility] 1.Left ventricular ejection | | [...] | | Ultrasound done on 01/06/2012 at [facility] to 15% | | diameter narrowing of the right. 16 to 49% narrowing on the | | left.Echocardiograph done on 01/06/2012 at [facility] | | [facility]1.LV systolic function is normal. 2.Ejection [...] | interpreted by Dr. Rudy Cameron at [facility] shows that | | there [...] | Interrogation | | | | | [address] [place] | (Primary Dx); | | | | | [place] [address] | Pacemaker, [place] | | | | | [phone] | Scientific, Single | | | | [...] W | | | | | | [address] [place] | | | | | | [place] [address] | | | | | | [phone] | | | | | | | [...] | Lead | N/A: | JONAS | [id number] | 01/03/ | 7741 | | - [id number]: Qty: 1 on | | Heart | SCIENTIFIC | [id number] | 2019 | /[id number] | | 03/17/2018 by Godfrey Jauregui | | | JAYLEEN - BSCI | 58 | | 3 | | MD Remy | | | | | | /[id number] | | | | | | | | 9 | + +--------+-------+ +--------+--------+--------+ | Pacemaker Accolade Vr Mri - | Pacema | N/A: | JONAS | [id number] | 07/13/ | L310 | | [id number]: Qty: 1 on | ker | Heart | SCIENTIFIC | [id number] | 2019 | /[id number] | | 03/17/2018 by Godfrey Jauregui | [...] +--------+ +---------+ | MEDICARE | MEDICA | [id number] | Medica | [phone] | | | RE | | re | [phone] | | | | PART A | | | | | | | AND B | | | | | + +--------+ +--------+ +---------+ | [facility] | IHS | [id number] | Indemn | | | | SERVICE [...] | Self | [birth year] | Home: | [address] | | | al/Fam | | 1936 | [phone] | [place] [address] | | | kathryn | | | [phone] | | + +--------+ +--------+ + +"
--- OUTSIDE RECORDS SUMMARY | ~2018-09-02 | XMS | Clinical Summary ---
Demographics + + + | Address | [address] [place] [address] RD | | | [place] [address] | + + + | Home Phone | | + + + | Preferred Language | Unknown | + + + | Marital Status | Single | + + + | Restorationism Affiliation | UNK | + + + [...] Team Providers + +------+ + | Care Transferrer Name | Role | Phone | + +------+ + PP | Unavailable | + +------+ + Source Comments MYLA is fully live on both [facility] and [facility] Allergies Not on File Current Medications [...]
--- OUTSIDE RECORDS SUMMARY | 2018-09-02 17:46 | XMS ---
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 Care History Medical/Surgical 02/08/2018 [facility] - UPDATE PATIENT UROLOGIST IS DR GE. - CHW SPOKE WITH PIPER CEVALLOS FOR [...] WITH PATIENT AND PATIENT FAMILY IS LUIZ NGUYEN AT [facility]. CONTACT NUMBER [phone]. 09/20/2017 [facility] Care Recommendation: This patient has had 5 or more Emergency Department visits in the last 12 months. Patient requires education on the scope and purpose of the ED as an acute care provider not a Primary Care Provider and should not be utilized for chronic conditions. If patient returns to ED please contact Community Health WorkerPadmini at [phone].These are guidelines and the provider should exercise clinical judgment when providing care. E.D. VISIT COUNT (12 MO.) 2 [facility] 8 [facility]. TOTAL 10 NOTE: Visits indicate total known visits. ED/UCC VISIT TRACKING (12 MO.) 09/02/2018 17:43 [facility] TYPE: Emergency COMPLAINT: - VOMITING/COUGH 08/16/2018 17:13 [facility] TYPE: Emergency COMPLAINT: - COUGH DIAGNOSES: - Unspecified atrial fibrillation - Allergy status to narcotic agent status - Other plans examiner (current) drug therapy - Acute upper respiratory infection, unspecified - Cough - Allergy status to other drugs, medicaments and biological substances status - Hypertensive chronic kidney disease with stage 1 through stage 4 chronic kidney disease, or unspecified chronic kidney disease - Chronic kidney disease, stage 3 (moderate) - Allergy status to other antibiotic agents status - Allergy status to sulfonamides status - shoe parts molder (current) use of aspirin 05/15/2018 13:43 [facility] TYPE: Emergency COMPLAINT: - BREATHING TROUBLE 05/12/2018 20:47 [facility] TYPE: Emergency COMPLAINT: - IV REPLACED DIAGNOSES: - Other assisted (current) drug therapy - Urinary tract infection, site not specified - Allergy status to narcotic agent status - Allergy status to sulfonamides status - shoe parts molder (current) use of aspirin - Allergy status to other drugs, medicaments and biological substances status - Weakness - Essential (primary) hypertension - Allergy status to penicillin 04/07/2018 12:46 [facility] TYPE: Emergency DIAGNOSES: - Atelectasis - Pleural effusion, not elsewhere classified - Pneumonia, unspecified organism - Hypo-osmolality and hyponatremia - Difficulty Breathing - Fatigue 03/27/2018 23:17 [facility] TYPE: Emergency COMPLAINT: - ALTERED LOC 03/14/2018 13:38 [facility] TYPE: Emergency DIAGNOSES: - Syncope - Hypo-osmolality and hyponatremia - LOC, falls - Syncope and collapse - Loss of Consciousness - Unspecified fall, initial encounter - Weakness 02/06/2018 09:30 [facility] TYPE: Emergency COMPLAINT: - POSS UTI/FALL/BLACKED OUT DIAGNOSES: - Essential (primary) hypertension - Allergy status to sulfonamides status - Allergy status to penicillin - Allergy status to other antibiotic agents status - Allergy status to other drugs, medicaments and biological substances status - Other assisted (current) drug therapy - Hypo-osmolality and hyponatremia - Urinary tract infection, site not specified - shoe parts molder (current) use of aspirin - Allergy status to narcotic agent status - Syncope and collapse 10/06/2017 20:48 [facility] TYPE: Emergency COMPLAINT: - SKIN TEAR LT ARM,GLF DIAGNOSES: - Syncope and collapse - Allergy status to other drugs, medicaments and biological substances status - Diarrhea, unspecified - shoe parts molder (current) use of aspirin - Allergy status to penicillin - Allergy status to sulfonamides status - Allergy status to narcotic agent status - Hypo-osmolality and hyponatremia - Essential (primary) hypertension - Other plans examiner (current) drug therapy - Allergy status to other antibiotic agents status 09/18/2017 16:10 [facility] TYPE: Emergency COMPLAINT: - DIARRHEA DIAGNOSES: - Allergy status to narcotic agent status - Hypokalemia - Allergy status to penicillin - Allergy status to sulfonamides status - Allergy status to other drugs, medicaments and biological substances status - Weakness - shoe parts molder (current) use of aspirin - Diarrhea, unspecified - Allergy status to other antibiotic agents status - Other assisted (current) drug therapy - Noninfective gastroenteritis and colitis, unspecified - Essential (primary) hypertension INPATIENT VISIT TRACKING (12 MO.) 05/15/2018 18:[address] [facility] [place] TYPE: Medical Surgical COMPLAINT: - ACUTE PULMONARY EMBOLISM DIAGNOSES: - Allergy status to narcotic agent status - Allergy status to other antibiotic agents status - Do not resuscitate - retirement (current) use of aspirin - Do not resuscitate - Gastro-esophageal reflux disease without esophagitis - Pericardial effusion (noninflammatory) - Extended spectrum beta lactamase (ESBL) resistance - shoe parts molder (current) use of aspirin - Unspecified Escherichia coli [E. coli] as the cause of diseases classified elsewhere - Major depressive disorder, single episode, unspecified - Allergy status to sulfonamides status - shoe parts molder (current) use of non-steroidal anti-inflammatories (NSAID) - Pleural effusion, not elsewhere classified - Hypoxemia - Presence of cardiac pacemaker - Other assisted (current) drug therapy - Unspecified abdominal pain - Allergy status to narcotic agent status - Allergy status to sulfonamides status - Other allergy status, other than to drugs and biological substances - Urinary tract infection, site not specified - Unspecified atrial fibrillation - Allergy status to penicillin - shoe parts molder (current) use of opiate analgesic - Allergy status to other antibiotic agents status - Gastro-esophageal reflux disease without esophagitis - shoe parts molder (current) use of inhaled steroids - Hypoxemia - shoe parts molder (current) use of inhaled steroids - Urinary tract infection, site not specified - Major depressive disorder, single episode, unspecified - Pericardial effusion (noninflammatory) - Other assisted (current) drug therapy - Extended spectrum beta lactamase (ESBL) resistance - Other allergy status, other than to drugs and biological substances - Unspecified abdominal pain - shoe parts molder (current) use of opiate analgesic - Allergy status to penicillin - Other pulmonary embolism without acute cor pulmonale - Presence of cardiac pacemaker - retirement (current) use of non-steroidal anti-inflammatories (NSAID) - Unspecified Escherichia coli [E. coli] as the cause of diseases classified elsewhere - Pleural effusion, not elsewhere classified - Unspecified atrial fibrillation 04/07/2018 21:11 [facility] TYPE: General Medicine DIAGNOSES: - Pneumonia due [...] - Headache - Pericardial effusion (noninflammatory) - shoe parts molder (current) use of aspirin - Gastro-esophageal reflux disease without esophagitis - Unspecified mood [affective] disorder - Psychophysiologic insomnia - Noninfective gastroenteritis and colitis, unspecified - Pneumonia due to other Gram-negative bacteria [facility] DIAGNOSES: - Acute cystitis without hematuria - Unspecified fall, initial encounter - Syncope and collapse - Pericardial effusion (noninflammatory) - Hypo-osmolality and hyponatremia - Weakness - Essential (primary) hypertension [email or web address]
== END 2018-09-02 21:35 | disposition home or self-care (01) ==
LOC: ED 17:43
DX: R53.1 Weakness (principal); R05 Cough; R11.2 Nausea with vomiting, unspecified; I48.91 Unspecified atrial fibrillation; K21.9 Gastro-esophageal reflux disease without esophagitis; F32.9 Major depressive disorder, single episode, unspecified; I12.9 Hypertensive chronic kidney disease with stage 1 through stage 4 chronic kidney disease, or unspecified chronic kidney disease; N18.3 Chronic kidney disease, stage 3 (moderate); Z90.710 Acquired absence of both cervix and uterus; Z88.2 Allergy status to sulfonamides; Z88.5 Allergy status to narcotic agent; Z88.0 Allergy status to penicillin; Z88.8 Allergy status to other drugs, medicaments and biological substances; Z88.1 Allergy status to other antibiotic agents
CPT/HCPCS: 71046; 80053; 80162; 81001; 83690; 85025; 87088; 96360; 96361; 99285-25; J7030

== ENCOUNTER 2020-04-14 17:12 | Emergency (ER) | payer MEDICARE, OTHER ==
[~2020-04-14] VITALS: Ht 152.4 cm; Wt 66.5 kg
--- OUTSIDE RECORDS SUMMARY | 2020-04-14 17:14 | XMS ---
PreManage Notification: YOANDY AL Security Mailing Jogger Events No recent Security Events currently on file CRITERIA MET - Group Notification - History of Sepsis Dx CARE PROVIDERS MELVI CANCINO Physician Regional Liaison: Surgical 02/07/2018-Current PHONE: Unknown Benito has no Care Guidelines for this patient. Care History Medical/Surgical 02/08/2018 [facility] - UPDATE PATIENT UROLOGIST IS DR GE. - CHW SPOKE WITH PIPER CEVALLOS FOR MELVI HANSON. - PATIENT HAS NO SHOWED TO APPOINTMENTS WITH PCP OFFICE. - LAST TIME PATIENT WAS SEEN BY PCP WAS IN MAY 2017. - PATIENT HAD A UROLOGIST REFERRAL AND AN APT WAS SET AT [facility] DR MERIDA ON 07/27/17 PATIENT DAUGHTER CANCELLED THE APT. - PATIENT NEEDS TO BE SEEN BY PCP AND ANOTHER REFERRAL MADE TO THE UROLOGIST. - CURRENT CHW WORKING WITH PATIENT AND PATIENT FAMILY IS LUIZ NGUYEN AT [facility]. CONTACT NUMBER [phone]. 09/20/2017 [facility] Care Recommendation: This patient has had 5 or more Emergency Department visits in the last 12 months. Patient requires education on the scope and purpose of the ED as an acute care provider not a Primary Care Provider and should not be utilized for chronic conditions. If patient returns to ED please contact Community Health WorkerPadmini at [phone].These are guidelines and the provider should exercise clinical judgment when providing care. E.D. VISIT COUNT (12 MO.) 1 [facility]elia Toure M[facility] 1 [facility] TOTAL 2 NOTE: Visits indicate total known visits. ED/UCC VISIT TRACKING (12 MO.) 04/14/2020 17:12 [facility] [place] TYPE: Emergency COMPLAINT: - OXYGEN LEVEL LOW 06/15/2019 16:45 [facility] [place] TYPE: Emergency DIAGNOSES: - Syncope - Syncope and collapse - Fall INPATIENT VISIT TRACKING (12 MO.) No inpatient visits to display in this time frame [email or web address]
[2020-04-14] MEDS ORDERED: KEFLEX500 MG PO (17:32)
[2020-04-14] MEDS ORDERED: BAYER CHEWABLE81 MG PO (17:33)
[2020-04-14] MEDS ORDERED: ZITHROMAX250 MG PO (19:28)
--- NOTE | 2020-04-15 07:33 | EKG ---
[facility] [address] [place] [address] Signed Normal sinus rhythm Cannot rule out Inferior infarct , age undetermined Abnormal ECG When compared with ECG of 16-AUG-2018 18:07, SD interval has decreased Nonspecific T wave abnormality no longer evident in Inferior leads Confirmed by KAMRAN MEJIA MD ([id number]) on 04/15/2020 7:33:18 AM Electronically Signed By: KAMRAN MEJIA MD 04/15/20 0733 PATIENT NAME: YOANDY AL NEFTALY Electrocardiogram DATE OF : 33 PHYSICIAN: KAMRAN MEJIA MD REPORT #: [id number] REPORT IS CONFIDENTIAL AND NOT TO BE RELEASED WITHOUT AUTHORIZATION
== END 2020-04-14 19:48 | disposition home or self-care (01) ==
LOC: ED 17:12
DX: J40 Bronchitis, not specified as acute or chronic (principal); R50.9 Fever, unspecified; I48.91 Unspecified atrial fibrillation; F32.9 Major depressive disorder, single episode, unspecified; I12.9 Hypertensive chronic kidney disease with stage 1 through stage 4 chronic kidney disease, or unspecified chronic kidney disease; N18.30 Chronic kidney disease, stage 3 unspecified; Z88.2 Allergy status to sulfonamides; Z88.8 Allergy status to other drugs, medicaments and biological substances; Z88.1 Allergy status to other antibiotic agents; Z88.5 Allergy status to narcotic agent; Z79.899 Other long term (current) drug therapy
CPT/HCPCS: 51701; 71045; 80053; 81001; 83605; 83880; 84484; 85025; 93005; 93010; 99285-25; C9803; G0480

== ENCOUNTER 2020-08-22 09:28 | Emergency (ER) | payer MEDICARE, OTHER ==
[~2020-08-22] VITALS: Ht 152.4 cm; Wt 66.5 kg
[~2020-08-22 09:28] MED LIST changes: +BAYER CHEWABLE81 MG PO; +ZITHROMAX250 MG PO
--- OUTSIDE RECORDS SUMMARY | 2020-08-22 09:30 | XMS ---
PreManage Notification: YOANDY AL Security Lime Kiln Operator Events No recent Security Events currently on file CRITERIA MET - Group Notification - History of Sepsis Dx CARE PROVIDERS MELVI CANCINO Physician Business Management Consultant: Surgical 02/07/2018-Current PHONE: Unknown [facility] 04/15/2020-[facility] PHONE: [phone] Benito has no Care Guidelines for this patient. Care History Medical/Surgical 04/15/2020 [facility] \T\middot;\T\nbsp; PLEASE REFER PATIENT TO [facility] FOR NON EMERGENT MEDICAL NEEDS. \T\middot;\T\nbsp; [facility] CAN SEE PATIENTS SAME DAY FOR APTS IF PATIENT CALLS FIRST THING IN THE MORNING. E.D. VISIT COUNT (12 MO.) 2 [facility] Gregg TOTAL 2 NOTE: Visits indicate total known visits. ED/UCC VISIT TRACKING (12 MO.) 08/22/2020 09:29 [facility] [place] TYPE: Emergency COMPLAINT: - SYNCOPE 04/14/2020 17:12 [facility] [place] TYPE: Emergency COMPLAINT: - OXYGEN LEVEL LOW DIAGNOSES: - Contact with and (suspected) exposure to other viral communicable diseases - Allergy status to sulfonamides - Other half-way (current) drug therapy - Fever, unspecified - Hypertensive chronic kidney disease with stage 1 through stage 4 chronic kidney disease, or unspecified chronic kidney disease - Allergy status to other antibiotic agents - Altered mental status, unspecified - Allergy status to other drugs, medicaments and biological substances - Major depressive disorder, single episode, unspecified - Bronchitis, not specified as acute or chronic - Allergy status to narcotic agent - Unspecified atrial fibrillation - Chronic kidney disease, stage 3 unspecified INPATIENT VISIT TRACKING (12 MO.) No inpatient visits to display in this time frame [email or web address]
[2020-08-22] MEDS ORDERED: ONDANSETRON ODT4 MG PO (12:33)
--- NOTE | 2020-08-24 19:02 | EKG ---
[facility] [address] [place], [place] [address] Signed Normal sinus rhythm Normal ECG When compared with ECG of 14-APR-2020 18:30, Nonspecific T wave abnormality, improved in Anterolateral leads Confirmed by HEIDY GUZMAN DO ([id number]) on 08/24/2020 7:01:41 PM Electronically Signed By: HEIDY GUZMAN DO 08/24/201901 PATIENT NAME: MIKAELAYOANDY Electrocardiogram DATE OF : 33 PHYSICIAN: HEIDY GUZMAN DO REPORT #: [id number] REPORT IS CONFIDENTIAL AND NOT TO BE RELEASED WITHOUT AUTHORIZATION
== END 2020-08-22 12:40 | disposition home or self-care (01) ==
LOC: ED 09:28
DX: R55 Syncope and collapse (principal); R11.2 Nausea with vomiting, unspecified; I10 Essential (primary) hypertension; M10.9 Gout, unspecified; I48.91 Unspecified atrial fibrillation; K21.9 Gastro-esophageal reflux disease without esophagitis; N18.30 Chronic kidney disease, stage 3 unspecified; Z88.2 Allergy status to sulfonamides; Z88.8 Allergy status to other drugs, medicaments and biological substances; Z88.5 Allergy status to narcotic agent; Z88.0 Allergy status to penicillin; Z88.1 Allergy status to other antibiotic agents; Z79.899 Other long term (current) drug therapy; Z79.82 Long term (current) use of aspirin
CPT/HCPCS: 51701; 74022; 80048; 81001; 82330; 83690; 85025; 93005; 93010; 99284-25; J2405

== ENCOUNTER 2021-12-11 18:20 | Emergency (ER) | payer MEDICARE, OTHER ==
[~2021-12-11] VITALS: Ht 152.4 cm; Wt 66.5 kg
[~2021-12-11 18:20] MED LIST changes: +ONDANSETRON ODT4 MG PO
--- OUTSIDE RECORDS SUMMARY | 2021-12-11 18:28 | XMS ---
PreManage Notification: YOANDY AL Security Jacquard Lace Weaver Events No recent Security Events currently on file CRITERIA MET - Group Notification CARE PROVIDERS MELVI CANCINO Physician Tiler: Surgical 02/07/2018-[facility] PHONE: Unknown [facility] 04/15/2020-[facility] PHONE: [phone] Benito has no Care Guidelines for this patient. Care History Medical/Surgical 04/15/2020 [facility] - [facility], \T\middot;\T\nbsp; PLEASE REFER PATIENT TO [facility] FOR NON EMERGENT MEDICAL NEEDS. \T\middot;\T\nbsp; [facility] CAN SEE PATIENTS SAME DAY FOR APTS IF PATIENT CALLS FIRST THING IN THE MORNING. E.D. VISIT COUNT (12 MO.) 1 [facility] TOTAL 1 NOTE: Visits indicate total known visits. ED/UCC VISIT TRACKING (12 MO.) 12/11/2021 18:20 [facility] [place] TYPE: Emergency COMPLAINT: - SYNCOPE INPATIENT VISIT TRACKING (12 MO.) No inpatient visits to display in this time frame [email or web address]
--- NOTE | 2021-12-11 20:26 | EKG ---
[facility] [address] [place], [place] [address] Signed Normal sinus rhythm Inferior infarct , age undetermined Abnormal ECG When compared with ECG of 22-AUG-2020 09:34, No significant change was found Confirmed by KAMRAN MEJIA MD ([id number]) on 12/11/2021 8:26:38 PM Electronically Signed By: KAMRAN MEJIA MD 12/11/212025 PATIENT NAME: MIKAELAYOANDYAWILDA HIGGINBOTHAM Electrocardiogram DATE OF : 33 PHYSICIAN: KAMRAN MEJIA MD REPORT #: [id number] REPORT IS CONFIDENTIAL AND NOT TO BE RELEASED WITHOUT AUTHORIZATION
== END 2021-12-11 23:15 | disposition home or self-care (01) ==
LOC: ED 18:20
DX: S30.0XXA Contusion of lower back and pelvis, initial encounter (principal); S20.229A Contusion of unspecified back wall of thorax, initial encounter; W18.12XA Fall from or off toilet with subsequent striking against object, initial encounter; M10.9 Gout, unspecified; I48.91 Unspecified atrial fibrillation; K21.9 Gastro-esophageal reflux disease without esophagitis; I12.9 Hypertensive chronic kidney disease with stage 1 through stage 4 chronic kidney disease, or unspecified chronic kidney disease; Z88.2 Allergy status to sulfonamides; Z88.1 Allergy status to other antibiotic agents; Z88.0 Allergy status to penicillin; Z79.899 Other long term (current) drug therapy; Z79.82 Long term (current) use of aspirin
CPT/HCPCS: 36415; 70450; 71250; 72128; 72131; 74176; 80053; 84484; 85025; 93005; 93010; 99284-25; A9270; J7121

== ENCOUNTER 2021-12-23 19:21 | Emergency (ER) | payer MEDICARE, OTHER ==
[~2021-12-23] VITALS: Ht 152.4 cm; Wt 68.3 kg
--- OUTSIDE RECORDS SUMMARY | 2021-12-23 19:30 | XMS ---
PreManage Notification: YOANDY AL Security Buffing Wheel Inspector Events No recent Security Events currently on file CRITERIA MET - Group Notification - [facility] - 2 Visits in 30 Days CARE PROVIDERS MELVI CANCINO Physician Green Pipefitter: Surgical 02/07/2018-Current PHONE: Unknown [facility] 04/15/2020-[facility] PHONE: [phone] Benito has no Care Guidelines for this patient. Care History Medical/Surgical 04/15/2020 [facility] - PATIENT IS [place] ELIGIBLE, \T\middot;\T\nbsp; PLEASE REFER PATIENT TO [facility] FOR NON EMERGENT MEDICAL NEEDS. \T\middot;\T\nbsp; [facility] CAN SEE PATIENTS SAME DAY FOR APTS IF PATIENT CALLS FIRST THING IN THE MORNING. E.D. VISIT COUNT (12 MO.) 2 [facility] TOTAL 2 NOTE: Visits indicate total known visits. ED/UCC VISIT TRACKING (12 MO.) 12/23/2021 19:22 [facility] [place] TYPE: Emergency COMPLAINT: - LOW OXYGEN LEVELS 12/11/2021 18:20 [facility] [place] TYPE: Emergency COMPLAINT: - SYNCOPE DIAGNOSES: - Other intermodal customer service (current) drug therapy - Unspecified atrial fibrillation - Gastro-esophageal reflux disease without esophagitis - Gout, unspecified - Contusion of unspecified back wall of thorax, initial encounter - Allergy status to sulfonamides - Fall from or off toilet with subsequent striking against object, initial encounter - Hypertensive chronic kidney disease with stage 1 through stage 4 chronic kidney disease, or unspecified chronic kidney disease - halfway (current) use of aspirin - Contusion of lower back and pelvis, initial encounter - Allergy status to other antibiotic agents - Allergy status to penicillin INPATIENT VISIT TRACKING (12 MO.) No inpatient visits to display in this time frame [email or web address]
--- NOTE | 2021-12-24 00:29 | EKG ---
[facility] [address] [place], [place] [address] Signed Normal sinus rhythm Inferior infarct (cited on or before 11-DEC-2021) Abnormal ECG When compared with ECG of 11-DEC-2021 18:30, No significant change was found Confirmed by KAMRAN MEJIA MD ([id number]) on 12/24/2021 12:29:19 AM Electronically Signed By: KAMRAN MEJIA MD 12/24/21 0029 PATIENT NAME: YOANDY AL NEFTALY Electrocardiogram DATE OF : 33 PHYSICIAN: KAMRAN MEJIA MD REPORT #: [id number] REPORT IS CONFIDENTIAL AND NOT TO BE RELEASED WITHOUT AUTHORIZATION
== END 2021-12-24 00:52 | disposition home or self-care (01) ==
LOC: ED 19:21
DX: U07.1 COVID-19 (principal); I13.0 Hypertensive heart and chronic kidney disease with heart failure and stage 1 through stage 4 chronic kidney disease, or unspecified chronic kidney disease; N18.30 Chronic kidney disease, stage 3 unspecified; I50.9 Heart failure, unspecified; Z99.81 Dependence on supplemental oxygen; Z95.0 Presence of cardiac pacemaker; Z88.2 Allergy status to sulfonamides; Z88.5 Allergy status to narcotic agent; Z88.0 Allergy status to penicillin; Z88.1 Allergy status to other antibiotic agents; Z88.8 Allergy status to other drugs, medicaments and biological substances; Z79.899 Other long term (current) drug therapy
CPT/HCPCS: 36415; 71045; 80053; 83735; 83880; 84484; 85025; 87502; 93005; 93010; 96374; 99284-25; C9803; U0003

== ENCOUNTER 2022-06-29 17:20 | Inpatient (IN) | payer MEDICARE, OTHER ==
[~2022-06-29] VITALS: Ht 152.4 cm; Wt 61.2 kg
[~2022-06-29 17:20] MED LIST changes: -24 HOUR ALLER15.8 ML NAS; +ADULT ASPIRIN R81 MG PO; -BAYER CHEWABLE81 MG PO; +CEPHALEXIN250 MG PO; +FLUTICASONE PRO16 GM NAS; +MIRALAX119 GM PO; -MIRALAX17 GM PO
--- OUTSIDE RECORDS SUMMARY | 2022-06-29 17:26 | XMS ---
PreManage Notification: YOANDY AL Security Conservation Technician Events No recent Security Events currently on file CRITERIA MET - Group Notification CARE PROVIDERS MELVI CANCINO Physician Research Food Technologist: Surgical 02/07/2018-[facility] PHONE: Unknown [facility] 04/15/2020-[facility] PHONE: [phone] Benito has no Care Guidelines for this patient. Care History Medical/Surgical 04/15/2020 [facility] - PATIENT IS NALINIDONShahla ELIGIBLE, \T\middot;\T\nbsp; PLEASE REFER PATIENT TO [facility] FOR NON EMERGENT MEDICAL NEEDS. \T\middot;\T\nbsp; [facility] CAN SEE PATIENTS SAME DAY FOR APTS IF PATIENT CALLS FIRST THING IN THE MORNING. E.D. VISIT COUNT (12 MO.) [address] [facility] TOTAL 3 NOTE: Visits indicate total known visits. ED/UCC VISIT TRACKING (12 MO.) 06/29/2022 17:20 [facility] [place] TYPE: Emergency COMPLAINT: - ALTERED LOC 12/23/2021 19:22 [facility] [place] TYPE: Emergency COMPLAINT: - LOW OXYGEN LEVELS DIAGNOSES: - Allergy status to other drugs, medicaments and biological substances - Dependence on supplemental oxygen - Cough, unspecified - Allergy status to penicillin - COVID-19 - Other group home (current) drug therapy - Chronic kidney disease, stage 3 unspecified - Hypertensive heart and chronic kidney disease with heart failure and stage 1 through stage 4 chronic kidney disease, or unspecified chronic kidney disease - Presence of cardiac pacemaker - Heart failure, unspecified - Allergy status to narcotic agent - Allergy status to sulfonamides - Allergy status to other antibiotic agents 12/11/2021 18:[address] [facility] [place] TYPE: Emergency COMPLAINT: - SYNCOPE DIAGNOSES: - Gout, unspecified - Allergy status to other antibiotic agents - Unspecified atrial fibrillation - medical terminologist (current) use of aspirin - Fall from or off toilet with subsequent striking against object, initial encounter - Contusion of unspecified back wall of thorax, initial encounter - Allergy status to penicillin - Gastro-esophageal reflux disease without esophagitis - Contusion of lower back and pelvis, initial encounter - Other group home (current) drug therapy - Hypertensive chronic kidney disease with stage 1 through stage 4 chronic kidney disease, or unspecified chronic kidney disease - Allergy status to sulfonamides INPATIENT VISIT TRACKING (12 MO.) No inpatient visits to display in this time frame [email or web address]
--- NOTE | 2022-06-29 23:00 | NUR ---
BEDSIDE REPORT REC'D FROM PRIMARY NURSE IN ED. PT IN BED AOX3, VSS ON 4L O2 VIA NC, NAD. TRANSPORTED PT TO M/S FLOOR VIA STRETCHER. PT. TRANSFERRED EASILY FROM STRETCHER TO HOSPITAL BED. PT WITH NO C/O. ADMISSION HISTORY TAKEN FROM PT AND DAUGHTER BY MANAGER CONTROL. WILL CONTINUE TO MONITOR AND FOLLOW POC.
--- NOTE | 2022-06-29 23:43 | NUR ---
PATIENT ARRIVED TO THE FLOOR VIA STRETCHER. PATIENT ABLE TO SCOOT FROM STRETCHER TO HOSPITAL BED WITH NO ASSISTANCE. VITALS TAKEN AND RECORDED. ADMISSION COMPLETED. 2 RN SKIN ASSES COMPLETED BY THIS RN AND DANDRE MEEK. PATIENT ABLE TO ANSWER HEALTH HX QUESTIONS WITH MINIMAL ASSISTANCE BY DAUGHTER. PATIENT IS ABLE TO STATE MONTH, CITY AND HOSPITAL. PATIENTS DAUGHTER STATES "SHE HAS DEMENTIA". IV INFUSING PER ORDER. TELE #8 PLACED ON PATIENT. PATIENT AND DAUGHTER EDUCATED ON PLAN OF CARE. NO FURTHER NEEDS NOTED. CALL LIGHT IN REACH. BED ALARM ON FOR SAFETY.
--- NOTE | 2022-06-30 01:44 | NUR ---
PATIENT ASKING FOR WATER. PLACED CALL TO MD. RECEIVED ORDER FOR REGULAR DIET, VERIFIED TELEHPONE ORDER USING READBCAK METHOD.
--- NOTE | 2022-06-30 02:01 | NUR ---
V/S TAKEN AND CHARTED. PATIENT OFFERED SOMETHING TO EAT OR SNACKS AND SOMETHING TO DRINK. PATIENT STATED "IM NOT HUNGRY, JUST ICE WATER TO DRINK". PROVIDED.
--- NOTE | 2022-06-30 07:10 | NUR ---
PT WITH NO ACUTE OVERNIGHT EVENTS. VSS, NAD, NO C/O. PT CODE STATUS IN QUESTION DUE TO PATIENT AND CG STATING WISHES FOR DNR/DNI. PER CHARGE NURSE, ENDORSED TO DAY SHIFT FOR ATTENDING TO ADDRESS AND ORDER WHEN HE COMES TO ASSESS PT THIS AM. BEDSIDE HANDOFF REPORT GIVEN TO DAY NURSE.
--- NOTE | 2022-06-30 07:10 | NUR ---
REPORT RECEIVED FROM DANDRE MEEK. ALL QUESTIONS ANSWERED. PT RESTING IN BED WITH EYES CLOSED, RESPIRATIONS EVEN AND UNLABORED. CALL LIGHT IN REACH.
--- NOTE | 2022-06-30 09:01 | NUR ---
MORNING ASSESSMENT COMPLETE. PT LYING AWAKE IN BED. ORIENTED TO SELF, DISORIENTED TO PLACE, TIME AND SITUATION. PT DENIES WANTING TO EAT BREAKFAST. PT DENIES DIZZINESS AT THIS TIME. HEEL PROTECTORS IN PLACE. DENIES FURTHER NEEDS AT THIS TIME. CALL LIGHT IN REACH. BED ALARM ON.
[2022-06-30] MEDS ORDERED: ELIQUIS2.5 MG PO (09:15)
--- NOTE | 2022-06-30 09:26 | NUR ---
PT REFUSED TO EAT OR DRINK ANYTHING. PT BRIEF WAS DRY. CALL LIGHT IN HAND.
--- NOTE | 2022-06-30 11:00 | NUR ---
In to speak with pt and daughter, I have known them both for many years. Pt [place]. [place]. Per daughter, pt has mild dementia. They both have "colds" and pt is very weak and sick. Daughter, Elkin works, and her ex stays with pt during the day to assist her. Pt uses a walker, shower chair, and 024l at home. Pt worked 35 years at the [employer] when it was still open. Pt also has a pacemaker. Per Elkin, pt is a DNR and she is pts POA.
--- NOTE | 2022-06-30 11:10 | NUR ---
MED REC COMPLETE
--- NOTE | 2022-06-30 17:10 | NUR ---
PATIENT INCONTINENT OF URINE. FULL BED CHANGE DONE. PATIENT REPOSITIONED UP IN BED, PILLOW UNDER LEGS, BED ALARM IS ON.
--- NOTE | 2022-06-30 19:10 | NUR ---
BEDSIDE HANDOFF REPORT RECEIVED FROM DAY SHIFT RN. PT SLEEPING, LEFT UNDISTURBED.
--- NOTE | 2022-06-30 21:15 | NUR ---
PT REPOSITIONED IN BED. PT INCONTINENT OF URINE, PERICARE PERFORMED. VSS. P ON 4L NC, LUNG SOUNDS CLEAR, OCCASIONAL DRY COUGH, DENIES SOB. BOWEL TONES ACTIVE, DENIES NAUSEA. CMS INTACT, WITHOUT EDEMA, HEEL PROTECTORS TO BLE. PT ORIENTED TO ALL BUT DATE. IV TO LEFT AC INFILTRATED, NEW IV STARTED TO RIGHT FOREAR, INFUSING D5LR AT 100ML/HR. PT DENIES OTHER NEEDS AT THIS TIME.
--- NOTE | 2022-06-30 22:02 | NUR ---
DR. GUERRA RETURNED CALL, CORRECTED SODIUM 134, ORDER FOR NO FURTHER IV THERAPY, PT LIKELY TO DC HOME TOMORROW. PT UPDATED ON PLAN OF CARE FOR TONIGHT AND TOMORROW. PT DENIES OTHER NEEDS AT THIS TIME
--- NOTE | 2022-07-01 06:39 | NUR ---
MORNING ASSESSMENT COMPLETED. LUNG SOUNDS COARSE WITH RHONCHI, COUGH HAS BECOME MORE LOOSE THIS AM. IV FLUIDS CONTINUE AT 100ML/HR. PO PROTONIX GIVEN PER EMAR. PT UPDATED ON XRAY THIS AM. PT DENIES OTHER NEEDS AT THIS TIME.
--- NOTE | 2022-07-01 07:15 | NUR ---
report from Kizzy adkins, tele 8, iv d5lr @100, resting in bed eyes closed, white board updated.
--- NOTE | 2022-07-01 07:26 | NUR ---
PT SALINE LOCKED AND ASSISTED TO WHEEL CHAIR FOR CHEST XRAY, PT ABLE TO STAND AND PIVOT WITH MINIMAL ASSISTANCE.
--- NOTE | 2022-07-01 07:33 | NUR ---
pt to xray for cxr.
--- NOTE | 2022-07-01 08:17 | NUR ---
Received a call from MAURICE at [facility], he is looking for a timeline for DC. Let him know pt was made IP yesterday and I will call him after our [address] Martinez.
--- NOTE | 2022-07-01 09:36 | NUR ---
PT UP IN , PO TYLENOL AND COUGH MEDS GIVEN FOR COMPLAINS OF DISCOMFORT WITH COUGH. 0XYGEN ON AND PT RESTING WITH CALL LIGHT.
--- NOTE | 2022-07-01 10:40 | NUR ---
Spoke with pt. She states she is feeling better today. Updated I have sent her chart to [facility] and I am checking if she will go for therapy. She agrees. I spoke with Dr Martinez and he states he thinks she needs 1 more day before dc. Updated MAURICE from [facility].
--- NOTE | 2022-07-01 12:15 | NUR ---
DECREASED IV FLUIDS PER ORDERS, DC TELE, VISIT W/ PT AND HER DTG. PLAN IS HOPEFULL TO DC TO [facility] TOMORROW DEPENDING IN ACCEPTANCE. PT DENIES NEEDS AT THIS TIME. PO LEVAQUIN NEXT FOR PNEUMONIA.
--- NOTE | 2022-07-01 13:58 | EKG ---
[facility] [address] [place] [address] Signed Normal sinus rhythm Low voltage QRS Inferior infarct (cited on or before 11-DEC-2021) Cannot rule out Anterior infarct , age undetermined Abnormal ECG When compared with ECG of 23-DEC-2021 20:11, No significant change was found Confirmed by XI GUERRA MD ([id number]) on 07/01/2022 1:58:01 PM Electronically Signed By: XI GUERRA MD 07/01/22 1358 PATIENT NAME: YOANDY AL NEFTALY Electrocardiogram DATE OF : 33 PHYSICIAN: XI GUERRA MD REPORT #: [id number] REPORT IS CONFIDENTIAL AND NOT TO BE RELEASED WITHOUT AUTHORIZATION
--- NOTE | 2022-07-01 14:10 | NUR ---
PT SITTING IN CHAIR, O2 NC IN USE. SHE IS ALERT, ORIENTED AND PLEASANT TO VISIT WITH. PT SPEAKS SOFTLY, THANKED ME FOR VISITING. GAVE PT A COPY OF LESLIE AND JAMI. WILL FOLLOW
--- NOTE | 2022-07-01 16:34 | NUR ---
COVID SWAB COLLECTED SENT TO THE LAB
--- NOTE | 2022-07-01 17:27 | NUR ---
CALL TO DR CHRISTIANO OSOIRO TO LEAVE IV OUT - MONITOR I/O AND MAKE SURE QS VALUES.
--- NOTE | 2022-07-02 01:06 | NUR ---
pt lying in bed resting quietly. resp even et unlabored O2 @ 1L NC. Pt alert to self no acute distress noted at this time.
--- NOTE | 2022-07-02 06:05 | NUR ---
pt AWAKE RESTING IN BED. INCONTINENT OF URINE ON [place] PAD AND ATTENDS. 2PA TO BSC FOR VOID, BEATRICE STEADY UTILIZED. pt ABLE TO SIT AT SIDE OF BED AND STAND ON BEATRICE STEADY WITH ASSIST. SMEAR OF BM IN BSC. BACK TO BED. 1L OXYGEN BY NC IN PLACE. VSS. CALL LIGHT IN REACH. BED ALARM ON.
--- NOTE | 2022-07-02 07:15 | NUR ---
ASSUMED CARE, NO IV, PT EYES CLOSED CALL LIGHT IN REACH - PLAN FOR DC TO [facility] AT 10 AM VIA [facility]. REPORT FROM AMINTA MEEK.
--- NOTE | 2022-07-02 08:50 | NUR ---
Received order for SNF from Dr. Ramon. Orders, PASRR, covid test, 5 day emar, [facility] to [facility] by armando kowalski.
[2022-07-02] MEDS ORDERED: LEVOFLOXACIN250 MG PO (08:59)
[2022-07-02] MEDS ORDERED: BENZONATATE100 MG PO (09:01)
--- NOTE | 2022-07-02 09:36 | NUR ---
TIA AND I GOT PATIENT UP TO THE BEDSIDE COMMODE. GAVE HER A BED BATH. GOT HER DRESSED AND VITALS AND I&O ARE DONE. PATIENT IS SITTING UP IN HER CHAIR. WAITING TO BE DISCHARGED. OFFERING HER DRINKS OF HER ENSURE. DIDN'T EAT ANY OF HER BREAKFAST.
--- NOTE | 2022-07-02 10:20 | NUR ---
report called to radha adkins at [facility].
== END 2022-07-02 09:52 | DRG 194 ==
LOC: ED 17:20 → MS 17:21
PROVIDERS: ADMIT Internal Medicine; ATTEND Family Medicine
DX: J15.7 Pneumonia due to Mycoplasma pneumoniae (principal); E87.1 Hypo-osmolality and hyponatremia; I48.20 Chronic atrial fibrillation, unspecified; J96.11 Chronic respiratory failure with hypoxia; Z20.822 Contact with and (suspected) exposure to COVID-19; Z66 Do not resuscitate; I12.9 Hypertensive chronic kidney disease with stage 1 through stage 4 chronic kidney disease, or unspecified chronic kidney disease; N18.32 Chronic kidney disease, stage 3b; K59.09 Other constipation; K21.9 Gastro-esophageal reflux disease without esophagitis; R55 Syncope and collapse; J32.3 Chronic sphenoidal sinusitis; R74.01 Elevation of levels of liver transaminase levels; I48.0 Paroxysmal atrial fibrillation; F32.A Depression, unspecified; G30.9 Alzheimer's disease, unspecified; G47.00 Insomnia, unspecified; E55.9 Vitamin D deficiency, unspecified; F02.80 Dementia in other diseases classified elsewhere, unspecified severity, without behavioral disturbance, psychotic disturbance, mood disturbance, and anxiety; Z95.0 Presence of cardiac pacemaker; Z98.1 Arthrodesis status; Z90.49 Acquired absence of other specified parts of digestive tract; Z90.710 Acquired absence of both cervix and uterus; Z90.89 Acquired absence of other organs; Z98.890 Other specified postprocedural states; Z88.0 Allergy status to penicillin; Z88.1 Allergy status to other antibiotic agents; Z88.2 Allergy status to sulfonamides; Z88.6 Allergy status to analgesic agent; Z88.8 Allergy status to other drugs, medicaments and biological substances; Z79.2 Long term (current) use of antibiotics; Z79.01 Long term (current) use of anticoagulants; Z79.82 Long term (current) use of aspirin; Z79.899 Other long term (current) drug therapy
CPT/HCPCS: 36415; 70450; 71045; 71046; 80053; 81003; 84484; 85025; 87502; 93005; 93010; 94640; 94667; 94668; 94760; 97110; 97116; 97162; 97166; 97535; A9270; C9803; J1956; J7030; J7121; U0003

== ENCOUNTER 2022-07-31 15:30 | Emergency (ER) | payer MEDICARE, OTHER ==
[~2022-07-31] VITALS: Ht 152.4 cm; Wt 61.0 kg
[~2022-07-31 15:30] MED LIST changes: +BENZONATATE100 MG PO; +ELIQUIS2.5 MG PO
--- OUTSIDE RECORDS SUMMARY | 2022-07-31 15:38 | XMS ---
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 Events No recent Security Events currently on file CRITERIA MET - Group Notification CARE PROVIDERS MELVI CANCINO Physician Security Screener: Surgical 02/07/2018-Current PHONE: Unknown RAJEEV KHAN Director Business Intelligence: Foot \T\ Ankle Surgery Current PHONE: [phone] MIKAYLA TIM Internal Medicine Current PHONE: [phone] HEMANT JEAN Nurse Practitioner: Family Current PHONE: Unknown IRENE OBANDO Internal Medicine Current PHONE: [phone] JUDITH AQUINO Nurse Practitioner: Family Current PHONE: [phone] GASTON EDGE Nurse Practitioner Current [place]ENN PHONE: [phone] LILIAN [facility] Current PHONE: Unknown CAMRON HONG Family Medicine Current PHONE: [phone] SHU WHARTON Nurse Practitioner: Family Current PHONE: Unknown [facility] 04/15/2020-[facility] PHONE: [phone] Benito has no Care Guidelines for this patient. Care History Medical/Surgical 04/15/2020 [facility] - PATIENT IS [place] ELIGIBLE, \T\middot;\T\nbsp; PLEASE REFER PATIENT TO [facility] FOR NON EMERGENT MEDICAL NEEDS. \T\middot;\T\nbsp; [facility] CAN SEE PATIENTS SAME DAY FOR APTS IF PATIENT CALLS FIRST THING IN THE MORNING. E.D. VISIT COUNT (12 MO.) 4 [facility] TOTAL 4 NOTE: Visits indicate total known visits. 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 [place] TYPE: Emergency COMPLAINT: - SYNCOPE DIAGNOSES: - Allergy status to other antibiotic agents - Unspecified atrial fibrillation - salvage determiner (current) use of aspirin - Fall from or off toilet with subsequent striking against object, initial encounter - Contusion of unspecified back wall of thorax, initial encounter - Allergy status to penicillin - Gastro-esophageal reflux disease without esophagitis - Contusion of lower back and pelvis, initial encounter - Other [facility]cc (current) drug therapy - Hypertensive chronic kidney disease with stage 1 through stage 4 chronic kidney disease, or unspecified chronic kidney disease - Allergy status to sulfonamides - Gout, unspecified INPATIENT VISIT TRACKING (12 MO.) 06/30/2022 11:[address] [facility] [place] TYPE: Medical Surgical COMPLAINT: - SYNCOPE DIAGNOSES: - Chronic kidney disease, stage 3b - salvage determiner (current) use of antibiotics - Chronic atrial fibrillation, unspecified - Pneumonia due to Mycoplasma pneumoniae - Alzheimer's disease, unspecified - Allergy status to analgesic agent - Acquired absence of other organs - Pneumonia due to Mycoplasma pneumoniae - Arthrodesis status - Presence of cardiac pacemaker - Insomnia, unspecified - Allergy status to penicillin - Vitamin D deficiency, unspecified - Allergy status to other antibiotic agents - Gastro-esophageal reflux disease without esophagitis - retirement (current) use of aspirin - Do not resuscitate - Other specified postprocedural states - Chronic atrial fibrillation, unspecified - Dementia in other diseases classified elsewhere, unspecified severity, without behavioral disturbance, psychotic disturbance, mood disturbance, and anxiety - Acquired absence of other specified parts of digestive tract - Allergy status to other drugs, medicaments and biological substances - Elevation of levels of liver transaminase levels - Hypertensive chronic kidney disease with stage 1 through stage 4 chronic kidney disease, or unspecified chronic kidney disease - Do not resuscitate - salvage determiner (current) use of anticoagulants - Hypertensive chronic kidney disease with stage 1 through stage 4 chronic kidney disease, or unspecified chronic kidney disease - Other constipation - Allergy status to sulfonamides - Allergy status to sulfonamides - retirement (current) use of antibiotics - Arthrodesis status - Other constipation - Presence of cardiac pacemaker - retirement (current) use of anticoagulants - Acquired absence of both cervix and uterus - Chronic respiratory failure with hypoxia - Depression, unspecified - Gastro-esophageal reflux disease without esophagitis - Hypo-osmolality and hyponatremia - Alzheimer's disease, unspecified - Dementia in other diseases classified elsewhere, unspecified severity, without behavioral disturbance, psychotic disturbance, mood disturbance, and anxiety - Chronic sphenoidal sinusitis - Contact with and (suspected) exposure to COVID-19 - Contact with and (suspected) exposure to COVID-19 - Insomnia, unspecified - Syncope and collapse - Other mcc (current) drug therapy - Hypo-osmolality and hyponatremia - Acquired absence of other specified parts of digestive tract - Chronic kidney disease, stage 3b - Acquired absence of both cervix and uterus - Acquired absence of other organs - Allergy status to penicillin - salvage determiner (current) use of aspirin - Chronic sphenoidal sinusitis - Paroxysmal atrial fibrillation - Allergy status to other drugs, medicaments and biological substances - Chronic respiratory failure with hypoxia - Depression, unspecified - Allergy status to other antibiotic agents - Elevation of levels of liver transaminase levels - Allergy status to analgesic agent - Other mcc (current) drug therapy - Other specified postprocedural states - Vitamin D deficiency, unspecified - Paroxysmal atrial fibrillation [email or web address]
== END 2022-07-31 19:33 | disposition home or self-care (01) ==
LOC: ED 15:30
DX: U07.1 COVID-19 (principal); I12.9 Hypertensive chronic kidney disease with stage 1 through stage 4 chronic kidney disease, or unspecified chronic kidney disease; I48.91 Unspecified atrial fibrillation; M10.9 Gout, unspecified; K21.9 Gastro-esophageal reflux disease without esophagitis; G47.00 Insomnia, unspecified; N18.30 Chronic kidney disease, stage 3 unspecified; Z88.2 Allergy status to sulfonamides; Z88.1 Allergy status to other antibiotic agents; Z88.8 Allergy status to other drugs, medicaments and biological substances; Z88.5 Allergy status to narcotic agent; Z88.0 Allergy status to penicillin; Z79.899 Other long term (current) drug therapy
CPT/HCPCS: 71045; 99283-25

== ENCOUNTER 2023-07-16 14:14 | Emergency (ER) | payer MEDICARE, OTHER ==
[~2023-07-16] VITALS: Ht 152.4 cm; Wt 62.6 kg
[2023-07-16 15:21] LABS: ALBUMIN 3.4 g/dL (3.4-5.0); ALBUMIN/GLOBULIN RATIO 0.74 (1.1-2.4); ANION GAP 13.1 (7-21); BILIRUBIN, TOTAL 0.5 ng/dL (0.2-1.0); BUN/CREATININE RATIO 14.11 (6.0-28.6); CALCIUM 9.1 mg/dL (8.5-10.1); CREATININE, SERUM 1.63 mg/dL (0.55-1.02); POTASSIUM 4.1 mmol/L (3.5-5.1)
[2023-07-16 15:26] LABS: BASOPHILS 0.9 % (0-2); EOSINOPHILS 3.6 % (0-6); HEMATOCRIT 34.8 % (35.0-50.0); HEMOGLOBIN 12.4 g/dL (12.0-18.0); LYMPHOCYTES 38.1 % (24-44); MCH 30.9 (27-36); MCHC 35.6 g/dl (30-36); MCV 86.6 fl (81-99); MONOCYTES 7.1 % (0-12); NEUTROPHILS 50.3 % (39-80); PLATELET COUNT 202 K/uL (140-440); RBC 4.02 M/ul (4.3-5.7); RDW 14.2 (10.5-15.0)
[2023-07-16 17:38] LABS: BILIRUBIN, URINE NEGATIVE (negative); BLOOD/HGB, URINE NEGATIVE (Negative); KETONE, URINE NEGATIVE (Negative); LEUK ESTERASE, URINE NEGATIVE (negative); NITRITE, URINE NEGATIVE (negative); PH, URINE 5.5 (5-7)
[2023-07-16] MEDS ORDERED: ONDANSETRON ODT4 MG PO (18:07)
[2023-07-16 18:25] VITALS: BP 127/52
== END 2023-07-16 18:26 | disposition home or self-care (01) ==
LOC: ED 14:14
PROVIDERS: Emergency Medicine
DX: R10.11 Right upper quadrant pain (principal); R93.3 Abnormal findings on diagnostic imaging of other parts of digestive tract; I12.9 Hypertensive chronic kidney disease with stage 1 through stage 4 chronic kidney disease, or unspecified chronic kidney disease; N18.30 Chronic kidney disease, stage 3 unspecified; M10.9 Gout, unspecified; I48.91 Unspecified atrial fibrillation; K21.9 Gastro-esophageal reflux disease without esophagitis; F32.9 Major depressive disorder, single episode, unspecified; M13.0 Polyarthritis, unspecified; Z88.2 Allergy status to sulfonamides; Z88.8 Allergy status to other drugs, medicaments and biological substances; Z88.5 Allergy status to narcotic agent; Z88.1 Allergy status to other antibiotic agents; Z88.0 Allergy status to penicillin; Z79.899 Other long term (current) drug therapy; Z79.82 Long term (current) use of aspirin; Z79.01 Long term (current) use of anticoagulants
CPT/HCPCS: 36415; 74177; 80053; 81003; 83690; 83735; 85025; 99284-25; J7040; Q9967

== ENCOUNTER 2023-07-31 13:24 | Emergency (ER) | payer MEDICARE, OTHER ==
[~2023-07-31] VITALS: Ht 152.4 cm; Wt 62.6 kg
[2023-07-31 14:34] VITALS: BP 134/67
== END 2023-07-31 14:34 | disposition home or self-care (01) ==
LOC: ED 13:24
DX: S51.811A Laceration without foreign body of right forearm, initial encounter (principal); W18.30XA Fall on same level, unspecified, initial encounter; I48.91 Unspecified atrial fibrillation; I12.9 Hypertensive chronic kidney disease with stage 1 through stage 4 chronic kidney disease, or unspecified chronic kidney disease; N18.30 Chronic kidney disease, stage 3 unspecified; K21.9 Gastro-esophageal reflux disease without esophagitis; Z79.899 Other long term (current) drug therapy; Z79.82 Long term (current) use of aspirin; Z79.01 Long term (current) use of anticoagulants; Z95.0 Presence of cardiac pacemaker; Z88.2 Allergy status to sulfonamides; Z88.5 Allergy status to narcotic agent; Z88.0 Allergy status to penicillin; Z88.8 Allergy status to other drugs, medicaments and biological substances; Z88.1 Allergy status to other antibiotic agents
CPT/HCPCS: 73090; 99283

== ENCOUNTER 2024-06-07 15:26 | Emergency (ER) | payer MEDICARE, OTHER ==
[~2024-06-07] VITALS: Ht 152.4 cm; Wt 88.0 kg
[~2024-06-07 15:26] MED LIST changes: +AMOX TR-K CLV1 EAC1 PO; +CEFDINIR300 MG PO
[2024-06-07 16:30] LABS: BILIRUBIN, URINE NEGATIVE (negative); BLOOD/HGB, URINE TRACE-I (Negative); KETONE, URINE NEGATIVE (Negative); LEUK ESTERASE, URINE SMALL (negative); NITRITE, URINE NEGATIVE (negative)
[2024-06-07 16:38] LABS: BACTERIA, URINE RARE /hpf (negative); CASTS, URINE NONE SEEN \\lpf; COLLECTION TYPE, URINE CLEAN CATCH; CRYSTALS, URINE NONE SEEN (0-1+); REFLEX CULTURE, URINE No (No)
[2024-06-07] MEDS ORDERED: SODIUM CHLORIDE 0.9% 500 ML IV PRN (17:00)
[2024-06-07 17:18] LABS: BASOPHILS 1.2 % (0-2); EOSINOPHILS 4.6 % (0-6); HEMATOCRIT 35.7 % (35.0-50.0); HEMOGLOBIN 12.2 g/dL (12.0-18.0); MCH 29.2 (27-36); MCHC 34.2 g/dl (30-36); MCV 85.4 fl (81-99); MONOCYTES 6.9 % (0-12); NEUTROPHILS 43.3 % (39-80); PLATELET COUNT 175 K/uL (140-440); RBC 4.18 M/ul (4.3-5.7)
[2024-06-07 17:32] LABS: ALBUMIN 3.2 g/dL (3.4-5.0); ALBUMIN/GLOBULIN RATIO 0.7 (1.1-2.4); ANION GAP 12.2 (7-21); BILIRUBIN, TOTAL 0.8 ng/dL (0.2-1.0); BUN/CREATININE RATIO 8.33 (6.0-28.6); CALCIUM 9.1 mg/dL (8.5-10.1); CREATININE, SERUM 1.44 mg/dL (0.55-1.02); POTASSIUM 4.2 mmol/L (3.5-5.1); PROTEIN, TOTAL 7.8 g/dL (6.4-8.2)
[2024-06-07 18:42] VITALS: BP 151/56
== END 2024-06-07 18:42 | disposition home or self-care (01) ==
LOC: ED 15:26
PROVIDERS: Emergency Medicine
DX: R53.1 Weakness (principal); N28.9 Disorder of kidney and ureter, unspecified; R79.89 Other specified abnormal findings of blood chemistry; I48.91 Unspecified atrial fibrillation; K21.9 Gastro-esophageal reflux disease without esophagitis; Z95.0 Presence of cardiac pacemaker; Z88.2 Allergy status to sulfonamides; Z88.1 Allergy status to other antibiotic agents; Z88.5 Allergy status to narcotic agent; Z88.0 Allergy status to penicillin; Z88.8 Allergy status to other drugs, medicaments and biological substances; Z79.1 Long term (current) use of non-steroidal anti-inflammatories (NSAID); Z79.82 Long term (current) use of aspirin; Z79.01 Long term (current) use of anticoagulants; Z79.899 Other long term (current) drug therapy; Z91.81 History of falling; I10 Essential (primary) hypertension
CPT/HCPCS: 36415; 74177; 80053; 81001; 83690; 85025; 87088; 99285-25; Q9967